=== PATIENT | female | born 1990 | race Caucasian/White ===

== ENCOUNTER 2016-09-28 12:29 | Emergency (ER) | payer SELFPAY ==
--- NOTE | 2016-09-28 12:37 | ER Document Report ---
ED Medical Screen (RME) - General Stated Complaint: LOWER ABDOMINAL PAIN Time seen by provider: 12:45 Mode of Arrival: Ambulatory Information source: Patient Notes: 25-year-old female complaining of sharp left pelvic pain during sex last night. Has persisted the pain, radiates to suprapubic. White vaginal discharge, no odor. No urinary sx. No hx of ovarian cyst. TRAVEL OUTSIDE OF THE [place] IN LAST 30 DAYS: No - Related Data Allergies/Adverse Reactions: morphine Allergy (Verified 06/21/16 11:07) Past Medical History Pulmonary Medical History: Denies: Hx Tuberculosis Renal/ Medical History: Denies: Hx End Stage Renal Disease, Hx Kidney Stones, Hx Peritoneal Dialysis Traumatic Medical History: Reports: Hx Fractures - FX JAW A CHILD Past Surgical History: Reports: Hx Tonsillectomy. Denies: Hx Appendectomy, Hx Bowel Surgery, Hx Section, Hx Cholecystectomy, Hx Coronary Artery Bypass Graft, Hx Gastric Bypass Surgery, Hx Herniorrhaphy, Hx Hysterectomy, Hx Mastectomy, Hx Pacemaker, Hx Tubal Ligation - Immunizations Hx Diphtheria, Pertussis, Tetanus Vaccination: Yes
[2016-09-28 13:26] LABS: APPEARANCE,URINE SLIGHTLY-CLOUDY; BILIRUBIN,URINE NEGATIVE (NEGATIVE); GLUCOSE, URINE NEGATIVE (NEGATIVE); KETONES,URINE NEGATIVE (NEGATIVE); LEUKOCYTE ESTERASE,URINE NEGATIVE (NEGATIVE); NITRITE,URINE NEGATIVE (NEGATIVE); PROTEIN,URINE NEGATIVE (NEGATIVE); URINE SPECIFIC GRAVITY 1.014; UROBILINOGEN,URINE NEGATIVE mg/dL (<2.0)
--- NOTE | 2016-09-28 14:27 | ER Document Report ---
ED General - General Chief Complaint: Abdominal Pain Stated Complaint: LOWER ABDOMINAL PAIN Time seen by provider: 13:10 Mode of Arrival: Ambulatory Information source: Patient Notes: 25-year-old female reports sudden onset of suprapubic and left lower quadrant abdominal pain during intercourse last night. Patient reports she's had trace clear vaginal discharge for the past 3 days but no vaginal bleeding. Last menstrual period she says finished 3 days ago and was normal for her. She denies fever, chills, nausea, vomiting, cough, shortness of breath, chest pain, upper abdominal pain, back pain, dysuria, urgency, frequency, or hematuria. No prior history of pain like this. Physical Exam: General: Alert, appears well. HEENT: Normocephalic. Atraumatic. PERRLA. Extraocular movements intact. Oropharynx clear. Neck: Supple. Non-tender. Respiratory: No respiratory distress. Clear and equal breath sounds bilaterally. Cardiovascular: Regular rate and rhythm. Abdominal: Normal Inspection. Soft, non-tender. No distension. Normal Bowel Sounds. exam normal external female anatomy. Trace white discharge no vaginal bleeding. No abrasions or evidence of trauma. Patient has minimal left adnexal tenderness mineral midline tenderness with normal-size uterus not tender on the right. No cervical motion tenderness. Back: Non-tender. No deformity or step off. Extremities: Moves all four extremities. Upper extremities: Normal inspection. Non-tender. Normal color. Normal ROM. Normal temperature. Lower extremities: Normal inspection. Non-tender. No edema. Normal color. Normal ROM. Normal temperature. Neurological: Speech clear mentation normal no lateralizing signs Psychological: Normal affect. Normal Mood. Skin: Warm. Dry. Normal color. TRAVEL OUTSIDE OF THE [place] IN LAST 30 DAYS: No - Related Data Allergies/Adverse Reactions: morphine Allergy (Verified 09/28/16 12:48) Past Medical History - General Information source: Patient - Social History Smoking Status: Current Every Day Smoker Chew tobacco use (# tins/day): No Frequency of alcohol use: None Drug Abuse: None Family History: Reviewed & Not Pertinent Patient has suicidal ideation: No Patient has homicidal ideation: No Pulmonary Medical History: Denies: Hx Tuberculosis Renal/ Medical History: Denies: Hx End Stage Renal Disease, Hx Kidney Stones, Hx Peritoneal Dialysis Traumatic Medical History: Reports: Hx Fractures - FX JAW A CHILD Past Surgical History: Reports: Hx Tonsillectomy. Denies: Hx Appendectomy, Hx Bowel Surgery, Hx Section, Hx Cholecystectomy, Hx Coronary Artery Bypass Graft, Hx Gastric Bypass Surgery, Hx Herniorrhaphy, Hx Hysterectomy, Hx Mastectomy, Hx Pacemaker, Hx Tubal Ligation - Immunizations Hx Diphtheria, Pertussis, Tetanus Vaccination: Yes Review of Systems - Review of Systems Constitutional: denies: Chills, Fever EENT: denies: Ear pain, Throat pain Cardiovascular: denies: Chest pain Respiratory: denies: Cough, Short of breath Gastrointestinal: See HPI Genitourinary: See HPI Female Genitourinary: See HPI Musculoskeletal: denies: Back pain Hematologic/Lymphatic: denies: Swollen glands Neurological/Psychological: denies: Weakness, Numbness Physical Exam - Vital signs Vitals: Temp Pulse Resp BP Pulse Ox 98.2 F 80 16 129/68 H 100 09/28/16 12:45 09/28/16 12:45 09/28/16 12:45 09/28/16 12:45 09/28/16 12:45 Course - Re-evaluation Re-evalutation: 09/28/16 15:27 Patient is able amylase without difficulty though she reports amylase and does sometimes make her hurt. She has no discomfort elsewhere in her abdomen to suggest serious intra-abdominal pathology. History and physical are most consistent with nonspecific pelvic pain such as round ligament pain. She will be given outpatient referral to [facility] for recheck and asked to return for fever vomiting worse pain or other problems - Vital Signs Vital signs: Temp Pulse Resp BP Pulse Ox 98.2 F 80 16 129/68 H 100 09/28/16 12:45 09/28/16 12:45 09/28/16 12:45 09/28/16 12:45 09/28/16 12:45 - Laboratory Laboratory results interpreted by me: Urinalysis negative urine test negative wet prep negative for trichomoniasis or yeast GC chlamydia negative - Diagnostic Test Radiology reviewed: Reports reviewed Discharge - Discharge Clinical Impression: Pelvic pain Condition: Stable Disposition: HOME, SELF-CARE Additional Instructions: Pelvic Pain There are many causes of pain in the pelvic area. The cause could be the tubes, ovaries, uterus, intestines, appendix, pelvic muscles and connective tissue, or the urinary tract. The cause of your pelvic pain is not clear. However, it seems safe to treat you outside the hospital. If the pain sounds like a temporary problem, we sometimes wait to see if it goes away. Other patients may need additional tests, such as pelvic ultrasound or cultures. Conditions may change. Call us or come back for reexamination if any problems occur, such as: (1) Pain that becomes more severe, steady, or becomes concentrated in one specific area. Also, pain that is more severe with movement or coughing. (2) Vomiting that persists or becomes more frequent. (3) Blood in the vomitus, urine, or bowel movements. Blood in the stool may have a tarry or black appearance. (4) Shaking chills or fever greater than 100 degrees. (5) The abdomen becomes more distended or swollen. (6) Bowel movements cease. (7) Heavy vaginal bleeding. Referrals: JACQUES PLUNKETT MD [ACTIVE STAFF] - Follow up in 1 week
[2016-09-28 14:59] LABS: CHLAM PCR NOT DETECTED (NOT DETECT)
[2016-09-28 15:57] VITALS: BP 118/69
== END 2016-09-28 15:45 | disposition home or self-care (01) ==
LOC: ER 12:29
DX: R10.2 Pelvic and perineal pain (principal); R10.30 Lower abdominal pain, unspecified; R10.32 Left lower quadrant pain; N89.8 Other specified noninflammatory disorders of vagina; F17.210 Nicotine dependence, cigarettes, uncomplicated
CPT/HCPCS: 76830; 81001; 81025; 87086; 87210; 87491; 87591; 93976; 99284

== ENCOUNTER 2017-07-19 15:13 | Emergency (ER) | payer SELFPAY ==
--- NOTE | 2017-07-19 16:06 | ER Document Report ---
ED Medical Screen (RME) - General Chief Complaint: Abdominal Pain Stated Complaint: ABDOMINAL PAIN Time Seen by Provider: 07/19/17 16:05 Mode of Arrival: Ambulatory Information source: Patient Notes: Patient states she is concerned she may have an STD. TRAVEL OUTSIDE OF THE [place] IN LAST 30 DAYS: No - Related Data Allergies/Adverse Reactions: morphine Allergy (Verified 07/19/17 15:31) Past Medical History Pulmonary Medical History: Denies: Hx Tuberculosis Renal/ Medical History: Denies: Hx End Stage Renal Disease, Hx Kidney Stones, Hx Peritoneal Dialysis Traumatic Medical History: Reports: Hx Fractures - FX JAW A CHILD Past Surgical History: Reports: Hx Tonsillectomy. Denies: Hx Appendectomy, Hx Bowel Surgery, Hx Section, Hx Cholecystectomy, Hx Coronary Artery Bypass Graft, Hx Gastric Bypass Surgery, Hx Herniorrhaphy, Hx Hysterectomy, Hx Mastectomy, Hx Pacemaker, Hx Tubal Ligation - Immunizations Hx Diphtheria, Pertussis, Tetanus Vaccination: Yes Physical Exam - Vital signs Vitals: Temp Pulse Resp BP Pulse Ox 98.7 F 77 18 128/74 H 98 07/19/17 15:30 07/19/17 15:30 07/19/17 15:30 07/19/17 15:30 07/19/17 15:30 Course - Vital Signs Vital signs: Temp Pulse Resp BP Pulse Ox 98.7 F 77 18 128/74 H 98 07/19/17 15:30 07/19/17 15:30 07/19/17 15:30 07/19/17 15:30 07/19/17 15:30
--- NOTE | 2017-07-19 16:25 | ER Document Report ---
ED GI/ - General Chief Complaint: Abdominal Pain Stated Complaint: ABDOMINAL PAIN Time Seen by Provider: 07/19/17 16:05 Mode of Arrival: Ambulatory Notes: Patient is a 26-year-old female who comes emergency department for chief complaint of lower abdominal cramping and discomfort for the past couple of days. She states that about 1.5 weeks ago she had unprotected intercourse with a random individual, she also has since had intercourse with her ex, she states that her ex has a discharge going on right now. She is concerned she has an STD. She denies fever, rash, vomiting, current symptoms. She takes no daily medications. Only past medical history reported is tonsillectomy. TRAVEL OUTSIDE OF THE [place] IN LAST 30 DAYS: No - Related Data Allergies/Adverse Reactions: morphine Allergy (Verified 07/19/17 15:31) Past Medical History - General Information source: Patient - Social History Smoking Status: Never Smoker Drug Abuse: None Lives with: Family Family History: Reviewed & Not Pertinent Patient has suicidal ideation: No Patient has homicidal ideation: No Pulmonary Medical History: Denies: Hx Tuberculosis Renal/ Medical History: Denies: Hx End Stage Renal Disease, Hx Kidney Stones, Hx Peritoneal Dialysis Traumatic Medical History: Reports: Hx Fractures - FX JAW A CHILD Past Surgical History: Reports: Hx Tonsillectomy. Denies: Hx Appendectomy, Hx Bowel Surgery, Hx Section, Hx Cholecystectomy, Hx Coronary Artery Bypass Graft, Hx Gastric Bypass Surgery, Hx Herniorrhaphy, Hx Hysterectomy, Hx Mastectomy, Hx Pacemaker, Hx Tubal Ligation - Immunizations Hx Diphtheria, Pertussis, Tetanus Vaccination: Yes Review of Systems - Review of Systems Constitutional: No symptoms reported EENT: No symptoms reported Cardiovascular: No symptoms reported Respiratory: No symptoms reported Gastrointestinal: See HPI Genitourinary: See HPI Female Genitourinary: See HPI Musculoskeletal: No symptoms reported Skin: No symptoms reported Hematologic/Lymphatic: No symptoms reported Neurological/Psychological: No symptoms reported Physical Exam - Vital signs Vitals: Temp Pulse Resp BP Pulse Ox 98.7 F 77 18 128/74 H 98 07/19/17 15:30 07/19/17 15:30 07/19/17 15:30 07/19/17 15:30 07/19/17 15:30 Interpretation: Normal - General General appearance: Appears well, Alert - HEENT Head: Normocephalic, Atraumatic Eyes: Normal Pupils: PERRL - Respiratory Respiratory status: No respiratory distress Chest status: Nontender Breath sounds: Normal Chest palpation: Normal - Cardiovascular Rhythm: Regular Heart sounds: Normal auscultation Murmur: No - Abdominal Inspection: Normal Distension: No distension Bowel sounds: Normal Tenderness: Tender - There is mild suprapubic tenderness noted on examination, otherwise soft and benign abdomen, no guarding, rigidity, or rebound tenderness. No: McBurney's point, Garcia's sign, Guarding Organomegaly: No organomegaly - Genitourinary External exam: Normal Speculum exam: Cervix closed, Vaginal discharge - Small amount of whitish vaginal discharge noted Vaginal bleeding: None Bimanuel exam: No: Cervical motion tender Notes: PCT Ara present during examination - Back Back: Normal, Nontender. No: Tender, CVA tenderness, Vertebra tenderness - Extremities General upper extremity: Normal inspection, Nontender, Normal color, Normal ROM , Normal temperature General lower extremity: Normal inspection, Nontender, Normal color, Normal ROM , Normal temperature, Normal weight bearing. No: Allan's sign - Neurological Neuro grossly intact: Yes Cognition: Normal Orientation: AAOx4 Starr Coma Scale Eye Opening: Spontaneous [place] Coma Scale Verbal: Oriented [place] Coma Scale Motor: Obeys Commands [place] Coma Scale Total: 15 Speech: Normal Motor strength normal: LUE, RUE, LLE, RLE Sensory: Normal - Psychological Associated symptoms: Normal affect, Normal mood - Skin Skin Temperature: Warm Skin Moisture: Dry Skin Color: Normal Course - Re-evaluation Re-evalutation: Patient with unremarkable abdominal exam with no tenderness. No cervical motion tenderness. Scant discharge. Unremarkable physical exam otherwise. Unremarkable vital signs. Urinalysis indicating urinary tract infection with moderate leukocyte esterase and white blood cells. HCG is negative. Wet mount was not ideal but does show bacteria consistent with bacterial vaginosis. Gonorrhea and chlamydia pending. Discussed with patient. Patient will be treated for urinary tract infection, bacterial vaginosis, and she will be covered for pelvic infection including covering for gonorrhea and chlamydia. Patient states her significant other/ex has already been treated. Discussed follow-up recommendations and return precautions. Patient states understanding and agreement. - Vital Signs Vital signs: Temp Pulse Resp BP Pulse Ox 98.7 F 77 18 128/74 H 98 07/19/17 15:30 07/19/17 15:30 07/19/17 15:30 07/19/17 15:30 07/19/17 15:30 - Laboratory Laboratory results interpreted by me: 07/19/17 16:05 Urine Urobilinogen 2.0 H Ur Leukocyte Esterase MODERATE H Discharge - Discharge Clinical Impression: Pelvic pain Condition: Stable Disposition: HOME, SELF-CARE Additional Instructions: Your evaluation indicates both the urinary tract infection and bacterial vaginosis. You have been covered for a pelvic infection in addition to the prescriptions for the urinary tract infection and bacterial vaginosis. Follow- up with primary care. Return to the emergency department for any concerning symptoms including fever, vomiting, worsening pain, or any other concerning symptoms. Prescriptions: Cephalexin Monohydrate [Keflex 500 mg Capsule] 500 mg PO BID 5 Days #10 capsule Metronidazole [Flagyl 500 mg Tablet] 500 mg PO BID #14 tablet
[2017-07-19 16:39] LABS: APPEARANCE,URINE SLIGHTLY-CLOUDY; BILIRUBIN,URINE NEGATIVE (NEGATIVE); GLUCOSE, URINE NEGATIVE (NEGATIVE); KETONES,URINE NEGATIVE (NEGATIVE); LEUKOCYTE ESTERASE,URINE MODERATE (NEGATIVE); NITRITE,URINE NEGATIVE (NEGATIVE); PROTEIN,URINE NEGATIVE (NEGATIVE); URINE SPECIFIC GRAVITY 1.023
[2017-07-19] MEDS ORDERED: CEFTRIAXONE INJ 250 MG VIAL IM ONE (17:32)
[2017-07-19] MEDS ORDERED: AZITHROMYCIN 250 MG TABLET PO ONE (17:32)
[2017-07-19] MEDS ORDERED: LIDOCAINE 1% INJ-PF (10 MG/ML) 30 ML SDV INFIL ONE (17:32)
[2017-07-19 17:57] VITALS: BP 112/69
[2017-07-19 18:29] LABS: CHLAM PCR NOT DETECTED (NOT DETECT)
== END 2017-07-19 17:56 | disposition home or self-care (01) ==
LOC: ER 15:13
DX: N39.0 Urinary tract infection, site not specified (principal); N76.0 Acute vaginitis; B96.89 Other specified bacterial agents as the cause of diseases classified elsewhere; R10.2 Pelvic and perineal pain; Z20.2 Contact with and (suspected) exposure to infections with a predominantly sexual mode of transmission; Z88.5 Allergy status to narcotic agent
CPT/HCPCS: 99284; 96372; 87210; 81025; 81001; 87491; 87591; J3490; J0696

== ENCOUNTER 2017-08-31 08:19 | Emergency (ER) | payer SELFPAY ==
--- NOTE | 2017-08-31 09:32 | ER Document Report ---
ED GI/ - General Chief Complaint: Vaginal Discharge Stated Complaint: VAGINAL PAIN Time Seen by Provider: 08/31/17 09:23 Mode of Arrival: Ambulatory TRAVEL OUTSIDE OF THE [place] IN LAST 30 DAYS: No - HPI Notes: 08/31/17 09:30 26-year-old female presents with 2 days of dysuria sensation she is not emptying her bladder well as well as some stringy vaginal discharge. It is not significantly malodorous. It is not normal though for her. She states she found out that her had been cheating on her and is concerned she could have an STD. She has some mild pelvic pain. No back or flank discomfort. Denies fever. No nausea or vomiting. She has no other complaints or pain. She is unsure if she is . - Related Data Allergies/Adverse Reactions: morphine Allergy (Verified 08/31/17 08:20) Past Medical History - Social History Smoking Status: Current Every Day Smoker Family History: Reviewed & Not Pertinent Pulmonary Medical History: Denies: Hx Tuberculosis Renal/ Medical History: Denies: Hx End Stage Renal Disease, Hx Kidney Stones, Hx Peritoneal Dialysis Traumatic Medical History: Reports: Hx Fractures - FX JAW A CHILD Past Surgical History: Reports: Hx Tonsillectomy. Denies: Hx Appendectomy, Hx Bowel Surgery, Hx Section, Hx Cholecystectomy, Hx Coronary Artery Bypass Graft, Hx Gastric Bypass Surgery, Hx Herniorrhaphy, Hx Hysterectomy, Hx Mastectomy, Hx Pacemaker, Hx Tubal Ligation - Immunizations Hx Diphtheria, Pertussis, Tetanus Vaccination: Yes Review of Systems - Review of Systems -: Yes All other systems reviewed and negative Physical Exam - Vital signs Vitals: Temp Pulse Resp BP Pulse Ox 98.1 F 93 14 118/70 98 08/31/17 08:25 08/31/17 08:25 08/31/17 08:25 08/31/17 08:25 08/31/17 08:25 Interpretation: Normal - Notes Notes: GENERAL: VS as per nursing doc. Well-appearing, well-nourished and in no acute distress. HEAD: Atraumatic, normocephalic. EYES: Sclera anicteric, no conjunctival injection or discharge. ENT: Moist mucous membranes. NECK: Supple without lymphadenopathy. LUNGS: Breath sounds clear to auscultation bilaterally and equal. No wheezes rales or rhonchi. HEART: Regular rate and rhythm without murmurs. ABDOMEN: Soft, non-tender BACK: No CVA tenderness. EXTREMITIES: No edema. NEUROLOGICAL: Normal speech. Normal sensory and motor exams. No gross cerebellar abnormalities. PSYCH: Normal mood, normal affect. SKIN: Warm, dry/ : Pending - Genitourinary External exam: Normal. No: Lesions Speculum exam: Cervix closed, Vaginal discharge. No: Lesions, Vaginal lacerations - Mild slightly brownish discharge noted Vaginal bleeding: None Bimanuel exam: Other - Minimal generalized pelvic tenderness, nonlocalizing and no specific adnexal tenderness or masses noted. Somewhat limited by habitus. Course - Re-evaluation Re-evalutation: 08/31/17 10:14 Patient did not want to wait and wanted prophylaxis for STDs. Wet prep is pending at this point. We will ensure she is not and then we will provide her with STD prophylaxis with Rocephin and Zithromax. Urine is pending at this point. 08/31/17 10:38 Discussed findings with the patient. Urine has a significant amount of WBCs. We will place the patient on Macrobid while we await GC/Chlamydia PCR. HCG was negative. She understands follow-up needs. - Vital Signs Vital signs: Temp Pulse Resp BP Pulse Ox 98.1 F 93 14 118/70 98 08/31/17 08:25 08/31/17 08:25 08/31/17 08:25 08/31/17 08:25 08/31/17 08:25 - Laboratory Laboratory results interpreted by me: 08/31/17 09:55 Urine Protein 30 H Urine Urobilinogen 4.0 H Ur Leukocyte Esterase SMALL H Discharge - Discharge Clinical Impression: UTI (urinary tract infection), Vaginal discharge Condition: Good Disposition: HOME, SELF-CARE Additional Instructions: Return for any problems or concerns. Follow-up on the swabs that are pending at this point. If they are positive, any sexual partners will need to be treated. Prescriptions: Nitrofurantoin/Nitrofuran Mac [Macrobid 100 mg Capsule] 1 tab PO BID #14 capsule Phenazopyridine HCl [Pyridium 200 mg Tablet] 200 mg PO TID PRN #6 tablet PRN Reason: Urinary Symptoms Forms: Smoking Cessation Education
[2017-08-31 10:14] LABS: APPEARANCE,URINE CLOUDY; BILIRUBIN,URINE NEGATIVE (NEGATIVE); CALCIUM OXALATE CRYSTALS,URINE TOO NUMEROUS TO CNT /HPF; GLUCOSE, URINE NEGATIVE (NEGATIVE); KETONES,URINE NEGATIVE (NEGATIVE); LEUKOCYTE ESTERASE,URINE SMALL (NEGATIVE); NITRITE,URINE NEGATIVE (NEGATIVE); PROTEIN,URINE 30 mg/dL (NEGATIVE); URINE SPECIFIC GRAVITY 1.028
[2017-08-31] MEDS ORDERED: AZITHROMYCIN 250 MG TABLET PO ONE (10:14)
[2017-08-31] MEDS ORDERED: ONDANSETRON 4 MG TAB.RAPDIS PO ONE (10:14)
[2017-08-31] MEDS ORDERED: CEFTRIAXONE INJ 250 MG VIAL IM ONE (10:15)
[2017-08-31] MEDS ORDERED: LIDOCAINE 1% INJ-PF (10 MG/ML) 30 ML SDV ONE (11:25)
[2017-08-31 11:47] VITALS: BP 124/80
== END 2017-08-31 11:48 | disposition home or self-care (01) ==
LOC: ER 08:19
DX: N89.8 Other specified noninflammatory disorders of vagina (principal); N39.0 Urinary tract infection, site not specified; Z20.2 Contact with and (suspected) exposure to infections with a predominantly sexual mode of transmission; R10.2 Pelvic and perineal pain; F17.200 Nicotine dependence, unspecified, uncomplicated; Z88.5 Allergy status to narcotic agent
CPT/HCPCS: 99283; 96372; 87210; 81025; 81001; 87491; 87591; S0119; J3490; J0696

== ENCOUNTER 2017-10-10 13:27 | Emergency (ER) | payer SELFPAY ==
[2017-10-10] MEDS ORDERED: PREDNISONE 20 MG TABLET PO ONE (14:31)
[2017-10-10] MEDS ORDERED: DIPHENHYDRAMINE HCL 25 MG CAPSULE PO ONE (14:31)
--- NOTE | 2017-10-10 14:36 | ER Document Report ---
ED Allergic Reaction - General Chief Complaint: Allergic Reaction Stated Complaint: POSSIBLE ALLERGIC REACTION Time Seen by Provider: 10/10/17 14:09 Mode of Arrival: Ambulatory Information source: Patient TRAVEL OUTSIDE OF THE [place] IN LAST 30 DAYS: No - HPI Onset: Just prior to arrival Onset/Duration: Sudden Notes: Patient arrives with complaints of possible allergic reaction. The patient states that she is taking metronidazole for both Trichomonas and Bactrim vaginosis which was prescribed by the health department. She states that she also thought she was starting to get a cold. She took a dose of liquid guaifenesin and 10 minutes later took her dose of metronidazole and soon after developed redness to her skin with itching and lip swelling. She denies any difficulty breathing or swallowing. She did not take any medications. States that the lip swelling has resolved but her skin continues to be red and itchy. She denies any abdominal pain, nausea, vomiting, diarrhea. She denies any prior allergic reactions to these medications. She denies any blurred loss vision. No chest pain or shortness of breath. She denies any other complaints at this time. - Related Data Allergies/Adverse Reactions: morphine Allergy (Verified 10/10/17 13:28) Past Medical History - Social History Smoking Status: Unknown if Ever Smoked Family History: Reviewed & Not Pertinent Pulmonary Medical History: Denies: Hx Tuberculosis Renal/ Medical History: Denies: Hx End Stage Renal Disease, Hx Kidney Stones, Hx Peritoneal Dialysis Traumatic Medical History: Reports: Hx Fractures - FX JAW A CHILD Past Surgical History: Reports: Hx Tonsillectomy. Denies: Hx Appendectomy, Hx Bowel Surgery, Hx Section, Hx Cholecystectomy, Hx Coronary Artery Bypass Graft, Hx Gastric Bypass Surgery, Hx Herniorrhaphy, Hx Hysterectomy, Hx Mastectomy, Hx Pacemaker, Hx Tubal Ligation - Immunizations Hx Diphtheria, Pertussis, Tetanus Vaccination: Yes Review of Systems - Review of Systems -: Yes All other systems reviewed and negative Physical Exam - Vital signs Vitals: Temp Pulse Resp BP Pulse Ox 98.5 F 116 H 18 102/71 98 10/10/17 13:33 10/10/17 13:33 10/10/17 13:33 10/10/17 13:33 10/10/17 13:33 - Notes Notes: GENERAL: alert, cooperative, nontoxic, no distress. HEAD: normocephalic, atraumatic EYES: conjunctiva pink without discharge, no external redness or swelling. EARS: no external swelling, no external redness NOSE: atraumatic, no external swelling MOUTH/THROAT: mucous membranes moist and pink, posterior pharynx without erythema, swelling, exudate. No trismus or drooling. No lip or tongue swelling. No drooling. No stridor. NECK: soft, supple, full range of motion, no meningismus. CHEST: no distress, lungs clear and equal throughout. No wheezing, rales, rhonchi. CARDIAC: regular rate and rhythm, no murmur, normal capillary refill, normal pulses. No peripheral edema noted. ABDOMEN: Soft, nontender. BACK: full range of motion, no CVA tenderness. EXTREMITIES: full range of motion of all extremities. No redness, no swelling. NEURO: alert and oriented x 3, no focal deficits, full range of motion of all extremities. PYSCH: appropriate mood, affect. Patient is cooperative. SKIN: pink, warm, dry, generalized redness to the skin. No peeling of skin. No petechiae or vesicular lesions.. Course - Re-evaluation Re-evalutation: 10/10/17 15:13 Patient is nontoxic appearing with stable vitals. The patient was told she had trichomonas and bacterial vaginosis and was placed on metronidazole. She took a dose of metronidazole as well as a dose of liquid guaifenesin and then soon after developed red itching to the skin with lip swelling. This has since resolved. She was given a dose of prednisone and Benadryl here in the emergency department states that she feels significantly better with no more itching. On exam she has no rash and has no lip swelling and no airway compromise. It is difficult to know if this was the guaifenesin or the metronidazole that caused the allergic reaction. Patient performed wet prep here in the emergency department that was negative for trichomoniasis, still positive for bacterial vaginosis as well as yeast. Will place the patient on clindamycin for the actual vaginosis as well as Diflucan for the yeast. She was instructed to follow back up at the health department in 1-2 weeks for a recheck to ensure all of her infections have been cleared up. I will also send her home on 5 days of prednisone and instructions to take [id number] Benadryl for the allergic reaction. She is instructed to follow-up sooner if she develops any worsening symptoms, lip swelling, tongue swelling, difficulty breathing or swallowing, or any further concerns. The patient's emergency department workup and current diagnosis were explained to the patient and or family. Follow-up instructions were provided. Medications if prescribed were discussed. Instructions for when to return to the emergency department including specific worrisome symptoms were discussed with the patient and/or family. - Vital Signs Vital signs: Temp Pulse Resp BP Pulse Ox 98.5 F 116 H 18 102/71 98 10/10/17 13:33 10/10/17 13:33 10/10/17 13:33 10/10/17 13:33 10/10/17 13:33 Discharge - Discharge Clinical Impression: Bacterial vaginal infection, Yeast infection Allergic reaction caused by a drug Qualifiers: Encounter type: initial encounter Qualified Code(s): T78.40XA - Allergy, unspecified, initial encounter Condition: Stable Disposition: HOME, SELF-CARE Instructions: Acute Allergic Reaction to Drugs ([facility]), Vaginosis, Bacterial ([facility] ), Vaginal Yeast Infection ([facility]) Additional Instructions: Take medications as prescribed. Do not take any further metronidazole or guaifenesin. Drink plenty of fluids. Take [id number] Benadryl every 6 hours for your allergic reaction. Follow-up with your doctor or the health department in approximately 2 weeks for recheck to be sure you have cleared your bacterial vaginosis and yeast infection. Follow-up sooner for worsening rash, lip or tongue swelling, difficulty breathing or swallowing, or any further concerns. Prescriptions: Clindamycin HCl 300 mg PO BID #14 capsule Fluconazole [Diflucan 100 Mg Tablet] 100 mg PO ONCE #1 tablet Prednisone [Deltasone 20 mg Tablet] 3 tab PO DAILY 5 Days tablet Forms: Smoking Cessation Education Referrals: [facility] [Provider Group] - Follow up as needed
[2017-10-10 14:55] LABS: BACTERIA (WET MOUNT) 4+ BACTERIA SEEN; EPITHELIALS (WET MOUNT) 4+ EPITHELIALS SEEN; T.VAGINALIS (WET MOUNT) NO TRICHOMONAS SEEN; WBCS (WET MOUNT) 2+ WBCS SEEN; YEAST (WET MOUNT) YEAST SEEN
[2017-10-10 15:35] VITALS: BP 106/61
== END 2017-10-10 15:32 | disposition home or self-care (01) ==
LOC: ER 13:27
DX: L27.0 Generalized skin eruption due to drugs and medicaments taken internally (principal); T50.905A Adverse effect of unspecified drugs, medicaments and biological substances, initial encounter; N76.0 Acute vaginitis; B96.89 Other specified bacterial agents as the cause of diseases classified elsewhere; B37.3 Candidiasis of vulva and vagina
CPT/HCPCS: 99283; 87210; J7512

== ENCOUNTER 2017-10-28 20:06 | Emergency (ER) | payer SELFPAY ==
[2017-10-28] MEDS ORDERED: DIPHENHYDRAMINE HCL 50 MG CAPSULE PO ONE (20:15)
[2017-10-28] MEDS ORDERED: PREDNISONE 20 MG TABLET PO ONE (20:15)
[2017-10-28] MEDS ORDERED: FAMOTIDINE 20 MG TABLET PO ONE (20:15)
[2017-10-28] MEDS ORDERED: DIPHENHYDRAMINE HCL 25 MG CAPSULE ONE (20:18)
[2017-10-28] MEDS ORDERED: METHYLPREDNISOLONE INJ 125 MG/2 ML SDV IM ONE (20:18)
[2017-10-28] MEDS ORDERED: METHYLPREDNISOLONE INJ 125 MG/2 ML SDV ONE (20:19)
--- NOTE | 2017-10-28 20:19 | ER Document Report ---
ED Medical Screen (RME) - General Chief Complaint: Allergic Reaction Stated Complaint: DIFFICULTY BREATHING Time Seen by Provider: 10/28/17 20:15 Mode of Arrival: Wheelchair Information source: Patient Notes: 23-nm[age]-v[age]-year-old female presents to ED for complaint of possible allergic reaction with difficulty breathing. Respirations are regular and let unlabored and able to speak to me in full sentences. She states she is having body burning all over. She states she does not know what she is allergic to it started at about 1945 tonight. There are hives to face neck arms legs chest and back at this time. We will treat her with Pepcid Benadryl and Solu-Medrol and monitor her. TRAVEL OUTSIDE OF THE [place] IN LAST 30 DAYS: No - HPI Onset: Just prior to arrival Onset/Duration: Gradual Quality of pain: Burning Severity: Moderate Pain Level: 3 Associated Symptoms: Shortness of breath, Other - Body burning Exacerbated by: Denies Relieved by: Denies Similar symptoms previously: Yes Recently seen / treated by doctor: No - Related Data Smoking: Cigarettes Frequency of alcohol use: Occasional Drug Abuse: None Allergies/Adverse Reactions: morphine Allergy (Verified 10/10/17 13:28) Past Medical History - General Information source: Patient - Social History Cigarette use (# per day): Yes Frequency of alcohol use: Occasional Drug Abuse: None Lives with: Grandparent(s) Family history: Reviewed & Not Pertinent - Past Medical History Cardiac Medical History: Reports: None Pulmonary Medical History: Reports: None EENT Medical History: Reports: None Neurological Medical History: Reports: None Endocrine Medical History: Reports: None Renal/ Medical History: Reports: None Malignancy Medical History: Reports: None GI Medical History: Reports: None Musculoskeltal Medical History: Reports None Skin Medical History: Reports None Psychiatric Medical History: Reports: None Traumatic Medical History: Reports: Hx Fractures - FX JAW A CHILD Infectious Medical History: Reports: None Past Surgical History: Reports: Hx Tonsillectomy - Immunizations Immunizations up to date: Yes Hx Diphtheria, Pertussis, Tetanus Vaccination: Yes Review of Systems - Review of Systems Constitutional: No symptoms reported EENT: No symptoms reported Cardiovascular: No symptoms reported Respiratory: No symptoms reported Gastrointestinal: No symptoms reported Genitourinary: No symptoms reported Female Genitourinary: No symptoms reported Musculoskeletal: No symptoms reported Skin: No symptoms reported, Other - Hives to face arms legs chest abdomen and back Hematologic/Lymphatic: No symptoms reported Neurological/Psychological: No symptoms reported -: Yes All other systems reviewed and negative Physical Exam - Vital signs Vitals: Pulse Resp BP Pulse Ox 100 18 121/78 99 10/28/17 20:15 10/28/17 20:15 10/28/17 20:15 10/28/17 20:15 Interpretation: Normal - General General appearance: Appears well, Alert - HEENT Head: Normocephalic, Atraumatic Eyes: Normal Pupils: PERRL - Respiratory Respiratory status: No respiratory distress Chest status: Nontender Breath sounds: Normal Chest palpation: Normal - Cardiovascular Rhythm: Regular Heart sounds: Normal auscultation Murmur: No - Abdominal Inspection: Normal Distension: No distension Bowel sounds: Normal Tenderness: Nontender Organomegaly: No organomegaly - Back Back: Normal, Nontender - Extremities General upper extremity: Normal inspection, Nontender, Normal color, Normal ROM , Normal temperature General lower extremity: Normal inspection, Nontender, Normal color, Normal ROM , Normal temperature, Normal weight bearing. No: Allan's sign - Neurological Neuro grossly intact: Yes Cognition: Normal Orientation: AAOx4 [place] Coma Scale Eye Opening: Spontaneous [place] Coma Scale Verbal: Oriented [place] Coma Scale Motor: Obeys Commands [place] Coma Scale Total: 15 Speech: Normal Motor strength normal: LUE, RUE, LLE, RLE Sensory: Normal - Psychological Associated symptoms: Normal affect, Normal mood - Skin Skin Temperature: Warm Skin Moisture: Dry Skin Color: Normal Location of irregularity: Generalized Character of irregularity: Urticarial Irregularity with: Tenderness Course - Re-evaluation Re-evalutation: 10/28/17 21:20 Patient was treated with Pepcid Benadryl and Solu-Medrol. She continued to have some increase in hives. Epinephrine 0.3 mg given IM. We will continue to monitor. 10/29/17 04:39 patient was discharged AGAINST MEDICAL ADVICE around 1030. I have asked her to stay at least another hour after given epinephrine but she stated she needed to go home with her children and she needed to go home right then I explained to her all the risk of epinephrine and going home on monitored. Patient stated she needed to go home anyway and she left after signing her papers. Patient was alert oriented totally able to make a rational decision. She did have a family member to drive her home. She stated that she would return to the emergency room promptly if she had any return of symptoms of any shortness of breath or any heart palpitations. Patient was discharged home with a prescription for prednisone and an EpiPen. Patient instructed to please follow-up with her primary doctor and get allergy testing as soon as possible. - Vital Signs Vital signs: Temp Pulse Resp BP Pulse Ox 98.5 F 111 H 18 145/84 H 99 10/28/17 22:12 10/28/17 22:12 10/28/17 22:12 10/28/17 22:12 10/28/17 22:12 Doctor's Discharge - Discharge Clinical Impression: Allergic reaction Qualifiers: Encounter type: initial encounter Qualified Code(s): T78.40XA - Allergy, unspecified, initial encounter Condition: Stable Disposition: AGAINST MEDICAL ADVICE Instructions: Family Physicians / Practices Additional Instructions: ACUTE ALLERGIC REACTION: Your symptoms are due to an allergic reaction. Allergy can cause hives, swelling of the hands, feet, and face, hoarseness, and difficulty swallowing or breathing. It may be due to exposure to medication, animal dander, foods, infection, or insect bites. Medication is a common cause, even when prior use of this same medication caused no problems. Acute treatment may include adrenalin and antihistamines. Usually, the specific allergic agent can't be identified unless repeated episodes occur. Home treatment includes the following: (1) Stop any suspicious medications. This will be discussed with you. (2) Oral antihistamines for the next four to five days. Example, diphenhydramine (Benadryl) every four hours. (3) You may also use cimetidine (Tagamet), ranitidine (Zantac), or famotidine ( Pepcid) every four hours if diphenhydramine is not controlling itching and hives. (4) Avoid aspirin until the hives completely disappear. (5) Avoid hot baths or showers until the hives are completely gone. Call the doctor if faintness, difficulty swallowing, tightness in the chest , or wheezing occurs. EPINEPHRINE: An injection of epinephrine (also called adrenalin) is used to treat allergic reactions, asthma, and some other medical conditions. It is a stimulant medication that consticts blood vessels, relaxes smooth muscles such as in the bronchioles of the lung, elevates blood pressure, and increases heart rate. It can temporarily make you feel very nervous and shakey, but it's affects last only a short time, about 15 to 30 minutes at most. STEROID MEDICATION INJECTION: You have been given an injection of medicine of the cortisone/steroid class. This medication is used to control inflammation or allergy. It is often continued as a pill for a short period of time, until the acute process subsides. There are usually no side effects from short-term use of cortisone-like medications. Some persons feel an increased sense of well-being and are not sleepy at bedtime. Long-term use of cortisone medications is best avoided, unless required for a severe condition. If your condition does not remit, or relapses after the course of corticosteroid medication, you should consult your physician. STEROID MEDICATION: You have been given a medicine of the cortisone/steroid class. This medication is used to control inflammation or allergy. It is usually only given for a short period of time, until the acute process subsides. There are usually no side effects from short-term use of cortisone-like medications. Some persons feel an increased sense of well-being and are not sleepy at bedtime. Long-term use of cortisone medications is best avoided, unless required for a severe condition. If your condition does not remit, or relapses after the course of corticosteroid medication, you should consult your physician. ACID-SUPPRESSING MEDICATION: You have a prescription for medicine which reduces the stomach's secretion of acid. Examples include Zantac, Tagament, and Pepcid. These drugs are often used to allow healing of ulcers or esophagitis. They may be needed to prevent recurrence of ulcers in some patients, or to prevent damage from acid reflux in the esophagus. Take all medication as prescribed, even after the pain is gone. Regular antacids may be added as needed if you have symptoms while taking this medicine. These medications sometimes are prescribed for allergic reactions because they have anti-histaminic effects and relieve the rash and itching of the reaction. There are usually no side effects from this medication. But, in rare cases and particularly in the elderly, serious problems can occur. Contact your doctor if there is fever, rash, hallucinations, confusion, or unusual bruising. Contact your doctor at once if you develop lightheadedness, black or bloody stool, or bloody vomitus. ANTIHISTAMINES: An antihistamine has been given and/or prescribed to control your symptoms. Antihistamines are used for many reasons, including itching, watering eyes, runny nose, allergic swelling, hives, and insect stings. Antihistamines may cause drowsiness, especially with the first dose. Do not operate machinery or drive while under the effects of the medication. Other common side effects include dry mouth and eyes. In older persons, antihistamines can occasionally cause urinary retention, constipation, and trouble focusing the eyes. Do not combine the medication with alcohol, or with any other medication without talking to your doctor. USE OF DIPHENHYDRAMINE: The use of diphenhydramine (Benadryl) has been recommended to control allergic symptoms. The 25 mg strength is available over- the-counter, as well as the elixir. This antihistamine is used for many symptoms. It's useful for itching, watering eyes and nose, allergic swelling, hives, and insect stings. The medication can be repeated four times daily. Age Elixir (12.5 mg/tsp) 25 mg pill 2-3 yr 1/2 tsp 4-8 yr 1 tsp 9-14 yr 2 tsp one tab adult 1-2 tabs Antihistamines may cause drowsiness, especially with the first dose. Do not operate machinery or drive while under the effects of the medication. Do not combine the medication with alcohol, or with any other medication without talking to your doctor. Been recommended to stay another hour after getting epinephrine prednisone and Benadryl and Pepcid for your allergic reaction. You have insisted that she needed to go home now to take your kids home. You are signing out AGAINST MEDICAL ADVICE. It is been explained to you that the Alondra can make her heart race and it is better to monitor you for at least another hour. You have been instructed that if you have any symptoms of racing heart or any symptoms that are out of the normal please return to the emergency room immediately. FOLLOW-UP CARE: If you have been referred to a physician for follow-up care, call the physician s office for an appointment as you were instructed or within the next two days. If you experience worsening or a significant change in your symptoms, notify the physician immediately or return to the Emergency Department at any time for re-evaluation. Prescriptions: Epinephrine [Epipen Jr 0.15 mg/0.3 mL AutoInject] 1 ea IM ASDIR PRN #1 autoinjector PRN Reason: Prednisone [Deltasone 20 mg Tablet] 3 tab PO DAILY 5 Days tablet Forms: Elevated Blood Pressure, Smoking Cessation Education
[2017-10-28] MEDS ORDERED: DIPHENHYDRAMINE HCL 50 MG/ML VIAL ONE (20:37)
[2017-10-28] MEDS ORDERED: EPINEPHRINE INJ/PF 1 MG/1 ML AMPULE IM ONE (21:06)
[2017-10-28 22:12] VITALS: BP 145/84
== END 2017-10-28 22:20 | disposition left against medical advice (07) ==
LOC: ER 20:06
DX: T78.40XA Allergy, unspecified, initial encounter (principal); L50.9 Urticaria, unspecified; R06.02 Shortness of breath; F17.210 Nicotine dependence, cigarettes, uncomplicated; X58.XXXA Exposure to other specified factors, initial encounter
CPT/HCPCS: 96372; 96374; 99284; J0171; J2930

== ENCOUNTER 2018-03-20 23:16 | Emergency (ER) | payer SELFPAY ==
[2018-03-20 23:21] VITALS: BP 133/88
--- NOTE | 2018-03-21 00:13 | ER Document Report ---
ED Skin Rash/Insect Bite/Abscs - General Mode of Arrival: Ambulatory Information source: Patient TRAVEL OUTSIDE OF THE [place] IN LAST 30 DAYS: No - General Chief Complaint: Abscess Stated Complaint: SKIN PROBLEM Time Seen by Provider: 03/21/18 00:09 Notes: 27-year-old female presenting today with complaints of a possible abscess to her lower abdomen. Patient states she has noticed this for the last few days and had some discharge from yesterday. Patient has no discharge from her today. (KEVIN HDZ) - Related Data Allergies/Adverse Reactions: morphine Allergy (Verified 10/10/17 13:28) Past Medical History - General Information source: Patient - Social History Smoking Status: Never Smoker Cigarette use (# per day): No Frequency of alcohol use: None Drug Abuse: None Lives with: Family Family History: Reviewed & Not Pertinent Pulmonary Medical History: Denies: Hx Tuberculosis Traumatic Medical History: Reports: Hx Fractures - FX JAW A CHILD Past Surgical History: Reports: Hx Tonsillectomy - Immunizations Immunizations up to date: Yes Hx Diphtheria, Pertussis, Tetanus Vaccination: Yes Review of Systems - Review of Systems Constitutional: No symptoms reported EENT: No symptoms reported Cardiovascular: No symptoms reported Respiratory: No symptoms reported Gastrointestinal: No symptoms reported Genitourinary: No symptoms reported Female Genitourinary: No symptoms reported Musculoskeletal: No symptoms reported Skin: See HPI, Rash Hematologic/Lymphatic: No symptoms reported Neurological/Psychological: No symptoms reported -: Yes All other systems reviewed and negative Physical Exam - Vital signs Vitals: Temp Pulse Resp BP Pulse Ox 98.7 F 82 18 133/88 H 97 03/20/18 23:20 03/20/18 23:20 03/20/18 23:20 03/20/18 23:20 03/20/18 23:20 - Notes Notes: Physical Exam: General: Alert, appears well. HEENT: Normocephalic. Atraumatic. PERRLA. Extraocular movements intact. Oropharynx clear. Neck: Supple. Respiratory: No respiratory distress. Abdominal: Normal Inspection. No distension. Extremities: Moves all four extremities. Neurological: Normal cognition. AAOx4. Normal speech. Psychological: Normal affect. Normal Mood. Skin: 3cm x 2cm open blister, no fluctuance or induration. Small amount of surrounding erythema. (KEVIN HDZ) Course - Re-evaluation Re-evalutation: 03/21/18 00:13 Patient has no clinical signs of an abscess there is no induration. She has curled edges around the wound looks like a blister that has eroded. Patient is morbidly obese and was wearing tight clothing. I discussed with her she needs to put a Band-Aid over it and keep bacitracin on wound until healed. Will also place on 5 days of antibiotics she does have mild erythema around the ulceration that could be concerning for developing cellulitis Discussed return precautions as well. 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 Condition: Stable Disposition: HOME, SELF-CARE Additional Instructions: Please return to the emergency department next 3-4 days if symptoms are worsening despite antibiotic therapy and keeping bacitracin on wound and covering with Band-Aid Prescriptions: Bacitracin 1 applic TP DAILY PRN #1 pkg PRN Reason: Sulfamethoxazole/Trimethoprim [Bactrim Ds Tablet] 1 each PO BID 7 Days #14 tablet Forms: Return to Work Referrals: [facility] [NO LOCAL MD] - Follow up as needed Scribe Attestation: 03/23/18 19:12 I personally performed the services described documentation, reviewed and edited the documentation which was dictated to describe my presence, and it accurately records my words and actions. (MELISAS BROWN) Scribe Documentation - Scribe Written by Tanja:: Tanja Mahan, 03/21/2018 0046 acting as scribe for :: Julio
== END 2018-03-21 00:30 | disposition home or self-care (01) ==
LOC: ER 23:16
DX: L98.491 Non-pressure chronic ulcer of skin of other sites limited to breakdown of skin (principal); R21 Rash and other nonspecific skin eruption; E66.01 Morbid (severe) obesity due to excess calories
CPT/HCPCS: 99282

== ENCOUNTER 2018-06-24 19:17 | Emergency (ER) | payer SELFPAY ==
--- NOTE | 2018-06-24 20:17 | ER Document Report ---
ED Medical Screen (RME) - General Chief Complaint: OB Problem (<20wks) Stated Complaint: ABDOMINAL PAIN Time Seen by Provider: 06/24/18 20:14 Notes: 27-year-old female patient , LMP 05/05/2018, no care. Right lower quadrant/pelvic pain times 3 days. It is a dull ache. There is no bleeding. I have greeted and performed a rapid initial assessment of this patient. A comprehensive ED assessment and evaluation of the patient, analysis of test results and completion of the medical decision making process will be conducted by additional ED providers. TRAVEL OUTSIDE OF THE [place] IN LAST 30 DAYS: No - Related Data Allergies/Adverse Reactions: morphine Allergy (Verified 10/10/17 13:28) Past Medical History - General Last Menstrual Period: 05/05/2018 - Social History Frequency of alcohol use: None Family history: Reviewed & Not Pertinent Pulmonary Medical History: Denies: Hx Tuberculosis Renal/ Medical History: Denies: Hx End Stage Renal Disease, Hx Kidney Stones, Hx Peritoneal Dialysis Traumatic Medical History: Reports: Hx Fractures - FX JAW A CHILD Past Surgical History: Reports: Hx Tonsillectomy. Denies: Hx Appendectomy, Hx Bowel Surgery, Hx Section, Hx Cholecystectomy, Hx Coronary Artery Bypass Graft, Hx Gastric Bypass Surgery, Hx Herniorrhaphy, Hx Hysterectomy, Hx Mastectomy, Hx Pacemaker, Hx Tubal Ligation - Immunizations Immunizations up to date: Yes Hx Diphtheria, Pertussis, Tetanus Vaccination: Yes Physical Exam - Vital signs Vitals: Temp Pulse Resp BP Pulse Ox 98.1 F 94 18 134/66 H 99 06/24/18 19:40 06/24/18 19:40 06/24/18 19:40 06/24/18 19:40 06/24/18 19:40 Course - Vital Signs Vital signs: Temp Pulse Resp BP Pulse Ox 98.1 F 94 18 134/66 H 99 06/24/18 19:40 06/24/18 19:40 06/24/18 19:40 06/24/18 19:40 06/24/18 19:40
[2018-06-24 20:43] LABS: ABSOLUTE BASOPHILS # (AUTO) 0.1 10^3/uL (0.0-0.2); ABSOLUTE EOSINOPHILS # (AUTO) 0.2 10^3/uL (0.0-0.6); ABSOLUTE LYMPHOCYTES (AUTO) 3.9 10^3/uL (0.5-4.7); ABSOLUTE NEUT (AUTO) 5.8 10^3/uL (1.7-8.2); BASOPHILS % (AUTO) 0.5 % (0-2); EOSINOPHILS % (AUTO) 2.1 % (0-6); HEMATOCRIT 41.5 % (36.0-47.0); LYMPHOCYTES % (AUTO) 35.6 % (13-45); MEAN CORPUSCULAR HEMOGLOBIN 27.4 pg (27.0-33.4); MEAN CORPUSCULAR HGB CONC 33.8 g/dL (32.0-36.0); MEAN CORPUSCULAR VOLUME 81 fl (80-97); MONOCYTES % (AUTO) 8.9 % (3-13); PLATELET COUNT 218 10^3/uL (150-450); RED BLOOD COUNT 5.13 10^6/uL (3.72-5.28); RED CELL DISTRIBUTION WIDTH 15.3 % (11.5-14.0); SEGMENTED NEUTROPHILS % (AUTO) 52.9 % (42-78); TOTAL CELLS COUNTED % (AUTO) 100 %; WHITE BLOOD COUNT 10.9 10^3/uL (4.0-10.5)
[2018-06-24 20:58] LABS: ALANINE AMINOTRANSFERASE 26 U/L (9-52); ALKALINE PHOSPHATASE 79 U/L (38-126); ANION GAP 10 (5-19); APPEARANCE,URINE CLOUDY; ASPARTATE AMINO TRANSFERASE 9 U/L (14-36); BILIRUBIN,DIRECT 0.5 mg/dL (0.0-0.4); BILIRUBIN,TOTAL 0.5 mg/dL (0.2-1.3); BILIRUBIN,URINE NEGATIVE (NEGATIVE); BLOOD UREA NITROGEN 9 mg/dL (7-20); CALCIUM 9.5 mg/dL (8.4-10.2); CALCIUM OXALATE CRYSTALS,URINE RARE /HPF; CARBON DIOXIDE 22 mmol/L (22-30); CHLORIDE 106 mmol/L (98-107); COLOR,URINE YELLOW; GLUCOSE 86 mg/dL (75-110); GLUCOSE, URINE NEGATIVE (NEGATIVE); KETONES,URINE NEGATIVE (NEGATIVE); LEUKOCYTE ESTERASE,URINE MODERATE (NEGATIVE); NITRITE,URINE NEGATIVE (NEGATIVE); PROTEIN,URINE NEGATIVE (NEGATIVE); URINE SPECIFIC GRAVITY 1.026
--- NOTE | 2018-06-24 22:00 | ER Document Report ---
ED General - General Chief Complaint: OB Problem (<20wks) Stated Complaint: ABDOMINAL PAIN Time Seen by Provider: 06/24/18 20:14 Notes: Patient is a 27-year-old female at 6 weeks by LMP who presents with right lower abdominal pain that has been ongoing for the past 3 days. She states that the pain is a sharp, stabbing, constant pain to the right adnexal region. She states moving worsens the pain. Nothing improves the pain. She denies a history of similar pain during her previous the past 3 days. She denies any vaginal bleeding, vaginal discharge, fever or constitutional symptoms. She has not established care for this . TRAVEL OUTSIDE OF THE [place] IN LAST 30 DAYS: No - Related Data Allergies/Adverse Reactions: morphine Allergy (Verified 10/10/17 13:28) Past Medical History - General Information source: Patient Last Menstrual Period: 05/05/2018 - Social History Smoking Status: Current Every Day Smoker Frequency of alcohol use: None Drug Abuse: None Family History: Reviewed & Not Pertinent Patient has suicidal ideation: No Patient has homicidal ideation: No Pulmonary Medical History: Denies: Hx Tuberculosis Renal/ Medical History: Denies: Hx End Stage Renal Disease, Hx Kidney Stones, Hx Peritoneal Dialysis Traumatic Medical History: Reports: Hx Fractures - FX JAW A CHILD Past Surgical History: Reports: Hx Tonsillectomy. Denies: Hx Appendectomy, Hx Bowel Surgery, Hx Section, Hx Cholecystectomy, Hx Coronary Artery Bypass Graft, Hx Gastric Bypass Surgery, Hx Herniorrhaphy, Hx Hysterectomy, Hx Mastectomy, Hx Pacemaker, Hx Tubal Ligation - Immunizations Immunizations up to date: Yes Hx Diphtheria, Pertussis, Tetanus Vaccination: Yes Review of Systems - Review of Systems Notes: Constitutional: Negative for fever. HENT: Negative for sore throat. Eyes: Negative for visual changes. Cardiovascular: Negative for chest pain. Respiratory: Negative for shortness of breath. Gastrointestinal: Positive for abdominal pain Genitourinary: Negative for dysuria. Musculoskeletal: Negative for back pain. Skin: Negative for rash. Neurological: Negative for headaches, weakness or numbness. 10 point ROS negative except as marked above and in HPI. Physical Exam - Vital signs Vitals: Temp Pulse Resp BP Pulse Ox 98.1 F 94 18 134/66 H 99 06/24/18 19:40 06/24/18 19:40 06/24/18 19:40 06/24/18 19:40 06/24/18 19:40 Interpretation: Normal Notes: PHYSICAL EXAMINATION: GENERAL: Well-appearing, well-nourished and in no acute distress. HEAD: Atraumatic, normocephalic. EYES: Pupils equal round and reactive to light, extraocular movements intact, sclera anicteric, conjunctiva are normal. ENT: nares patent, oropharynx clear without exudates. Moist mucous membranes. NECK: Normal range of motion, supple without lymphadenopathy LUNGS: Breath sounds clear to auscultation bilaterally and equal. No wheezes rales or rhonchi. HEART: Regular rate and rhythm without murmurs ABDOMEN: Soft, nontender, normoactive bowel sounds. No guarding, no rebound. No masses appreciated. EXTREMITIES: Normal range of motion, no pitting or edema. No cyanosis. NEUROLOGICAL: No focal neurological deficits. Moves all extremities spontaneously and on command. PSYCH: Normal mood, normal affect. SKIN: Warm, Dry, normal turgor, no rashes or lesions noted. Course - Re-evaluation Re-evalutation: 06/24/18 21:59 Presents with right adnexal discomfort for the past 3 days in the setting of an early first trimester . Concern for possible ectopic . The remainder of the abdominal exam is quite benign. HCG is well above the level of the where we should be able to see an intrauterine . Transvaginal ultrasound will be obtained to further clarify. Urinalysis is consistent with a urinary tract infection. Clinical history and exam are not consistent with an acute appendicitis, pain is located exclusively over the right adnexa, no pain to the right lower quadrant, no rebound or guarding. 06/24/18 23:22 Transvaginal ultrasound does visualize a single intrauterine . Repeat abdominal exam is benign with no further abdominal pain. Labs otherwise unremarkable. Patient's urinalysis has been sent for culture and she has been started on antibiotics for treatment. At this time will discharge with return precautions and follow-up recommendations. Verbal discharge instructions given a the bedside and opportunity for questions given. Medication warnings reviewed. Patient is in agreement with this plan and has verbalized understanding of return precautions and the need for primary care follow-up in the next 24-72 hours. - Vital Signs Vital signs: Temp Pulse Resp BP Pulse Ox 98.4 F 82 16 124/74 100 06/24/18 23:32 06/24/18 23:32 06/24/18 23:32 06/24/18 23:32 06/24/18 23:32 - Laboratory Result Diagrams: 06/24/18 20:27 06/24/18 20:27 Laboratory results interpreted by me: 06/24/18 06/24/18 06/24/18 20:27 20:27 20:27 WBC 10.9 H RDW 15.3 H Direct Bilirubin 0.5 H AST 9 L Beta HCG, Quant 44804.00 H Urine Urobilinogen 4.0 H Ur Leukocyte Esterase MODERATE H - Diagnostic Test Radiology reviewed: Reports reviewed Discharge - Discharge Clinical Impression: related abdominal pain of lower quadrant, antepartum, First trimester Urinary tract infection Qualifiers: Urinary tract infection type: acute cystitis Hematuria presence: without hematuria Qualified Code(s): N30.00 - Acute cystitis without hematuria Condition: Good Disposition: HOME, SELF-CARE Additional Instructions: You were seen for abdominal pain during . Your ultrasound today shows a viable, intrauterine at just over 6 weeks of gestation. Your labs do show a urinary tract infection. You are being placed on Keflex for the next 5 days for treatment. The exact cause your pain is uncertain but is likely related to your developing baby. 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 Return to the emergency department immediately if you have worsening of your pain, have persistent vomiting, develop a fever of greater than 100.4F, begin to have vaginal bleeding, or any other symptoms that are worrisome to you. Prescriptions: Cephalexin Monohydrate [Keflex 500 mg Capsule] 500 mg PO Q6H 5 Days capsule
--- NOTE | 2018-06-24 22:57 | RADIOLOGY REPORT (SQ) ---
Obstetric ultrasound HISTORY: Right lower quadrant pain. FINDINGS: Single viable IUP is noted with estimated gestational age of six weeks and three days. Yolk sac is noted. heart motion is noted. No free fluid in the cul-de-sac. Maternal ovaries are within normal limits for size and appearance. No abnormal adnexal masses. IMPRESSION: Single viable IUP of six weeks and three days.
[2018-06-24] MEDS ORDERED: CEPHALEXIN 500 MG CAPSULE PO ONE (23:33)
[2018-06-24 23:55] VITALS: BP 124/74
== END 2018-06-24 23:50 | disposition home or self-care (01) ==
LOC: ER 19:17
DX: O23.11 Infections of bladder in pregnancy, first trimester (principal); O26.891 Other specified pregnancy related conditions, first trimester; R10.2 Pelvic and perineal pain; O99.331 Smoking (tobacco) complicating pregnancy, first trimester; Z3A.01 Less than 8 weeks gestation of pregnancy; Z88.5 Allergy status to narcotic agent
CPT/HCPCS: 36415; 76817; 80053; 81001; 84702; 85025; 86900; 86901; 87086; 99284

== ENCOUNTER 2019-02-09 12:05 | Outpatient (CLI) | payer MEDICAID ==
--- NOTE | 2019-02-09 14:30 | Non Stress Test Report ---
Non Stress Test Datetime Report Generated by CPN: 02/09/2019 14:30 DEMOGRAPHIC EGA NST: 40.0 INDICATION Indication for Study: Ordered by Provider VITAL SIGNS Temperature - NST: 98.3 Pulse - NST: 109 RESP - NST: 17 NBPSYS NST: 137 NBPDIA NST: 67 URINE RESULTS Urine Glucose - NST: Positive MONITORING Monitor Explained: Monitor Explained; Test Explained; Patient Verbalized Understanding Time on Monitor: 02/09/2019 12:46 Time off Monitor: 02/09/2019 13:12 NST Duration: 26 NST INTERVENTIONS NST Interventions: PO Hydration Physician Notified NST: A. Mcclain, CNM BABY A: [id number] BABY A Movement : Present Contraction Frequency : none FHR Baseline : 140 Accelerations : 15X15 Decelerations : None Variability : Moderate 6-25bpm NST Review: Meets Criteria for Reactive NST NST Review and Verified By : Alessia Camp RNC NST Results: Reactive NST COMMENTS NST Comments: CNM on unit reviewing strip NST REPORT Report Trigger: Send Report
== END 2019-02-09 13:20 | disposition home or self-care (01) ==
LOC: LC 12:05
PROVIDERS: ATTEND Obstetrics & Gynecology Gynecology
PROC: 4A1HXCZ Monitoring of Products of Conception, Cardiac Rate, External Approach (ICD-10-PCS; principal; 2019-02-09)
DX: O48.0 Post-term pregnancy (principal); Z3A.40 40 weeks gestation of pregnancy
CPT/HCPCS: 59025

== ENCOUNTER 2019-02-14 11:27 | Outpatient (CLI) | payer MEDICAID ==
--- NOTE | 2019-02-14 12:30 | Non Stress Test Report ---
Non Stress Test Datetime Report Generated by CPN: 02/14/2019 12:29 DEMOGRAPHIC EGA NST: 40.5 INDICATION Indication for Study: Decreased Movement MONITORING Monitor Explained: Monitor Explained; Test Explained; Patient Verbalized Understanding Time on Monitor: 02/14/2019 11:39 Time off Monitor: 02/14/2019 12:21 NST Duration: 42 NST INTERVENTIONS NST Interventions: PO Hydration; Reposition Patient BABY A: [id number] BABY A Movement : Present Contraction Frequency : 0 FHR Baseline : 140 Accelerations : 15X15 Decelerations : None Variability : Moderate 6-25bpm NST Review: Meets Criteria for Reactive NST NST Review and Verified By : ANGELES Kenney NST Results: Reactive NST REPORT Report Trigger: Send Report
== END 2019-02-14 12:31 | disposition home or self-care (01) ==
LOC: LC 11:27
PROVIDERS: ATTEND Obstetrics & Gynecology
PROC: 4A1HXCZ Monitoring of Products of Conception, Cardiac Rate, External Approach (ICD-10-PCS; principal; 2019-02-14)
DX: O36.8130 Decreased fetal movements, third trimester, not applicable or unspecified (principal); Z3A.40 40 weeks gestation of pregnancy
CPT/HCPCS: 59025

== ENCOUNTER 2019-02-16 07:00 | Inpatient (IN) | payer MEDICAID ==
[2019-02-16 07:45] LABS: ABSOLUTE EOSINOPHILS # (AUTO) 0.1 10^3/uL (0.0-0.6); ABSOLUTE LYMPHOCYTES (AUTO) 2.9 10^3/uL (0.5-4.7); ABSOLUTE MONOCYTES (AUTO) 0.8 10^3/uL (0.1-1.4); ABSOLUTE NEUT (AUTO) 6.3 10^3/uL (1.7-8.2); BASOPHILS % (AUTO) 0.4 % (0-2); EOSINOPHILS % (AUTO) 0.9 % (0-6); HEMATOCRIT 32.5 % (36.0-47.0); HEMOGLOBIN 10.9 g/dL (12.0-15.5); LYMPHOCYTES % (AUTO) 28.8 % (13-45); MEAN CORPUSCULAR HEMOGLOBIN 25.9 pg (27.0-33.4); MEAN CORPUSCULAR HGB CONC 33.6 g/dL (32.0-36.0); MEAN CORPUSCULAR VOLUME 77 fl (80-97); MONOCYTES % (AUTO) 7.9 % (3-13); PLATELET COUNT 255 10^3/uL (150-450); RED CELL DISTRIBUTION WIDTH 14.1 % (11.5-14.0); TOTAL CELLS COUNTED % (AUTO) 100 %; WHITE BLOOD COUNT 10.2 10^3/uL (4.0-10.5)
[2019-02-16 07:51] LABS: APPEARANCE,URINE CLOUDY; BILIRUBIN,URINE NEGATIVE (NEGATIVE); COLOR,URINE YELLOW; GLUCOSE, URINE NEGATIVE (NEGATIVE); KETONES,URINE NEGATIVE (NEGATIVE); LEUKOCYTE ESTERASE,URINE MODERATE (NEGATIVE); NITRITE,URINE NEGATIVE (NEGATIVE); PROTEIN,URINE NEGATIVE (NEGATIVE); URINE SPECIFIC GRAVITY 1.016; UROBILINOGEN,URINE NEGATIVE mg/dL (<2.0)
[2019-02-16 08:15] LABS: URINE AMPHETAMINES SCREEN NEGATIVE; URINE BARBITURATES SCREEN NEGATIVE; URINE BENZODIAZEPINES SCREEN NEGATIVE; URINE COCAINE SCREEN NEGATIVE; URINE MARIJUANA (THC) SCREEN NEGATIVE; URINE METHADONE SCREEN NEGATIVE; URINE PHENCYCLIDINE SCREEN NEGATIVE
[2019-02-16] MEDS ORDERED: RINGERS SOLUTION,LACTATED 300 ML IV ONE (08:15)
[2019-02-16] MEDS ORDERED: OXYTOCIN/NORMAL SALINE 1,000 ML IV PRN (08:15)
[2019-02-16] MEDS ORDERED: RINGERS SOLUTION,LACTATED 1,000 ML IV PRN (08:15)
[2019-02-16] MEDS ORDERED: DINOPROSTONE 10 MG VAGINAL INSERT.SR PV PRN (08:15)
[2019-02-16] MEDS ORDERED: PENICILLIN G POTASSIUM 5,000,000 UNIT in DEXTROSE 5%-WATER 100 ML IV ONE (08:20)
[2019-02-16] MEDS ORDERED: PENICILLIN G-K 5 MILLION UNIT VIAL ONE ×3 (08:25→16:31)
[2019-02-16] MEDS ORDERED: MISOPROSTOL 0.2 MG TABLET ONE (08:25)
[2019-02-16] MEDS ORDERED: LIDOCAINE 1% INJ-PF (10 MG/ML) 30 ML SDV ONE (08:25)
[2019-02-16] MEDS ORDERED: OXYTOCIN/NORMAL SALINE 20 UNIT/1,000 ML RTUINJ ONE (08:25)
[2019-02-16] MEDS ORDERED: OXYTOCIN/NORMAL SALINE 20 UNIT/1,000 ML RTUINJ IV PRN ×2 (08:59→17:46)
[2019-02-16] MEDS: PENICILLIN G POTASSIUM 2,500,000 UNIT in DEXTROSE 5%-WATER 50 ML IV SCH ×2 (13:07→16:45)
[2019-02-16] MEDS ORDERED: PHENYLEPHRINE HCL INJ/PF 10 MG/1 ML SDV ONE (13:33)
[2019-02-16] MEDS ORDERED: FENTANYL CITRATE INJ/PF 100 MCG/2 ML AMPUL ONE (13:33)
[2019-02-16] MEDS ORDERED: BUPIVACAINE HCL 0.25 % INJ/PF (2.5 MG/1 ML) 30 ML VIAL ONE (13:34)
[2019-02-16] MEDS ORDERED: FENTANYL/BUPIVACAINE/NS/PF 300 MCG/150 ML RTUINJ EPI ONE (13:34)
[2019-02-16] MEDS ORDERED: EPHEDRINE SULFATE INJ 50 MG/1 ML AMPULE ONE (13:34)
--- NOTE | 2019-02-16 14:47 | Admission Physical ---
Datetime Report Generated by CPN: 02/16/2019 14:47 CURRENT ADMISSION Chief Complaint: Scheduled Induction of Labor Indication for Induction: Post Dates Admit Impression : Term, Intrauterine ; Induction of Labor Admit Plan: Admit to Unit; Initiate Labor Induction Protocol ALLERGIES Medication Allergies: Yes Medication Allergies: morphine (02/09/2019); metronidazole/Facial edema an (02/09/2019) Latex: Unknown OBSTETRICAL HISTORY EDC: 02/09/2019 00:00 : 4 Para: 2 Term: 2 : 0 SAB: 1 IAB: 0 Ectopic: 0 Livin Cesareans: 0 VBACs: 0 Multiple Births: 0 Gestational Diabetes: No Rh Sensitization: No Incompetent Cervix: No LITZY: No Infertility: No ART Treatment: No Uterine Anomaly: No IUGR: No Hx Previous C/S: No Macrosomia: No Hx Loss/Stillborn: No PIH: No Hx : No Placenta Previa/Abruption: No Depression/PP Depression: No PTL/PROM: No Post Hemorrhage: No Current Procedures: Ultrasound SEE RECORDS Alcohol: No Marijuana : No Cocaine: No Other Illicit Drugs: No Cigarettes: Current Everyday Smoker. 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 Heart Disease: No Hosp/Surgery: No Autoimmune Disorder: No Anesthetic Complications: No Kidney Disease: No Abnormal Pap Smear: No Neuro/Epilepsy: No Psychiatric Disorders: No Other Medical Diseases: No Hepatitis/Liver Disease: No Significant Family History: No Varicosities/Phlebitis: No Trauma/Violence : No Thyroid Dysfunction: No INFECTIOUS HISTORY Gonorrhea: No Genital Herpes: No Chlamydia: No Tuberculosis: No Syphilis: No Hepatitis: No HIV/AIDS Exposure: No Rash or Viral Illness: No HPV: No PHYSICAL EXAM General: Normal HEENT: Normal Neurologic: Normal Thyroid: Deferred Heart: Normal Lungs: Normal Breast: Deferred Back: Normal Abdomen: Normal Genitourinary Exam: Deferred Extremities: Normal DTRs: Normal Pelvic Type: Adequate Vital Signs: Reviewed MEMBRANES Membranes: Intact FETUS A EGA: 41.0 Monitoring: External US FHR- Baseline: 140 FHR Category: Category I Admit Comment: IOL for postdates Treated for trichomonas in 01'19 Positive for GBS-will treat in labor Antepartum records in chart Anticipate -Proven for 7lbs 8oz PLANS FOR LABOR AND DELIVERY Labor and Delivery: None Pain Management: Epidural Feeding Preference: Breast Circumcision: N/A INFORMED CONSENT Assignment: Rodney Guaman MD Signature: with User ID: Avril : with User ID: [email or web address] : I personally evaluated and examined the patient in conjunction with the MLP and agree with the assessment, treatment plan and disposition.
[2019-02-16] MEDS ORDERED: PROMETHAZINE HCL 25 MG SUPP.RECT PR PRN (17:46)
[2019-02-16] MEDS ORDERED: NA PHOS,M-B/NA PHOS,DI-BA (ADULT) 133 ML ENEMA PR PRN (17:46)
[2019-02-16] MEDS ORDERED: ZOLPIDEM TARTRATE 5 MG TABLET PO PRN (17:46)
[2019-02-16] MEDS ORDERED: DIPHENHYDRAMINE HCL 25 MG CAPSULE PO PRN (17:46)
[2019-02-16] MEDS ORDERED: PROMETHAZINE HCL INJ 25 MG/1 ML VIAL IV PRN (17:46)
[2019-02-16] MEDS ORDERED: DIPH/PERTUSS(ACELL)/TETANUS VAC/PF 0.5 ML SYR (>=10YO) IM PRN (17:46)
[2019-02-16] MEDS ORDERED: MEASLES,MUMPS&RUBELLA VACC/PF 0.5 ML VIAL SUBCUT PRN (17:46)
[2019-02-16] MEDS ORDERED: GLYCERIN/WITCH HAZEL LEAF 1 EACH MED..WIPE TP PRN (17:46)
[2019-02-16] MEDS ORDERED: ACETAMINOPHEN WITH CODEINE #3 TABLET PO PRN ×2 (17:46)
[2019-02-16] MEDS ORDERED: ACETAMINOPHEN 650 MG SUPP.RECT PR PRN (17:46)
[2019-02-16] MEDS ORDERED: MAGNESIUM HYDROXIDE SUSP 30 ML UDCUP PO PRN (17:46)
[2019-02-16] MEDS ORDERED: BENZOCAINE/MENTHOL AEROSOL SPRAY 56 ML TOP PRN (17:46)
[2019-02-16] MEDS ORDERED: PSEUDOEPHEDRINE HCL 30 MG TABLET PO PRN (17:46)
[2019-02-16] MEDS ORDERED: PROMETHAZINE HCL 25 MG TABLET PO PRN (17:46)
[2019-02-16] MEDS ORDERED: DIBUCAINE 1% OINTMENT 56 GM TP PRN (17:46)
--- NOTE | 2019-02-16 17:51 | Delivery Summary ---
Del Sum A-C Datetime Report Generated by CPN: 02/16/2019 17:51 DELIVERY PERSONNEL DELIVERY PERSONNEL: [id number] Delivery Doctor:: Ángela Manzanares CNM Nurse Underwriting Support Specialist Certified:: Ángela Manzanares CNM Anesthesiologist:: Nisih Philippe MD Labor and Delivery Nurse:: Elissa Caceres RN Nursery Nurse:: Nella Garcia RN Industrial Insulator/UTILITY ENGINEER: Andreea Hollingsworth CST Industrial Insulator/UTILITY ENGINEER: Divya Robbins, ST MATERNAL INFORMATION Delivery Anesthesia: Epidural Medications After Delivery: Pitocin Drip 20 Units/1000ml NSS Estimated Blood Loss (ml): 100 Maternal Complications: None Provider Comments: viable female in vertex OA to TIFF at 1705 under epidural anesthesia. Nuchal cord x 1-reduced. Terminal meconium. Spontaneous respirations and cry. 3-vessel cord. Apgars 9-9. Cord clamped x 2, after 2 in delay, then cut by fob. Placenta, membranes and cord expelled at 1711, appears intact. Perineum inspected, intact. FF @ U-2. Patient tolerated procedure well. LABOR SUMMARY EDC: 02/09/2019 00:00 No. Babies in Womb: 1 Labor Anesthesia: Epidural LABOR INFORMATION Reason for Induction: Post Dates Onset of Labor: 02/16/2019 09:15 Complete Dilatation: 02/16/2019 16:58 Oxytocin: Induction Group B Beta Strep: Positive Antibiotics # of Doses: 2 Antibiotics Time of Last Dose: 1300 Name of Antibiotic Given: [place] Steroids Given: None MEMBRANES Membranes Rupture Method: Spontaneous Rupture of Membranes: 02/16/2019 17:04 Length of Rupture (hr): 0.02 Amniotic Fluid Color: Clear Amniotic Fluid Amount: Small Amniotic Fluid Odor: Normal STAGES OF LABOR Stage 1 hr: 7 Stage 1 min: 43 Stage 2 hr: 0 Stage 2 min: 7 Stage 3 hr: 0 Stage 3 min: 2 Total Time in Labor hr: 7 Total Time in Labor min: 52 VAGINAL DELIVERY Episiotomy: None Laceration #1: None Laceration Extension #1: N/A Laceration Repair: Not Applicable Sponge Count Correct: N/A Sharps Count Correct: Yes CSECTION DELIVERY CSection Incision: N/A BABY A INFORMATION Infant Delivery Date/Time: 02/16/2019 17:05 Method of Delivery: Vaginal Born in Route : No : N/A Forceps: N/A Vacuum Extraction: N/A Shoulder Dystocia : No PRESENTATION/POSITION BABY A Presentation: Cephalic Cephalic Presentation: Vertex Vertex Position: Right Occipital Anterior Breech Presentation: N/A PLACENTA INFORMATION BABY A Placenta Delivery Time : 02/16/2019 17:07 Placenta Method of Delivery: Spontaneous Placenta Status: Delivered SCORES BABY A Heart Rate 1 min: >100 bpm Resp Effort 1 min: Good Cry Reflex Irritability 1 min: Cough or Sneeze or Pulls Away Muscle Tone 1 min: Active Motion Color 1 min: Body Diller, Extremities Blue Resuscitation Effort 1 min: Tactile Stimulation SCORE 1 MIN: 9 Heart Rate 5 min: >100 bpm Resp Effort 5 min: Good Cry Reflex Irritability 5 min: Cough or Sneeze or Pulls Away Muscle Tone 5 min: Active Motion Color 5 min: Body Diller, Extremities Blue Resuscitation Effort 5 min: Tactile Stimulation SCORE 5 MIN: 9 INFANT INFORMATION BABY A Gestational Age at Delivery: 41.0 Gestational Status: Late Term- 41- 41.6 Weeks Infant Outcome : Liveborn Infant Condition : Stable Sex: Female IDENTIFICATION BABY A Infant Verification Date/Time: 02/16/2019 17:46 ID Band Number: [id number] Mother's Name Verified: Yes Infant RN Verifying : Elissa Caceres RN Additional Verifying Personnel: Keesha Aguilar RN CORD INFORMATION BABY A No. Cord Vessels: 3 Nuchal Cord : Around Neck x1, Loose Cord Blood Taken: Yes-For Eval (Mom's Blood Type - or O+) ASSESSMENT BABY A Complications: None Physical Findings at Delivery: Within Normal Limits Infant Respirations: Appears Normal Skin to Skin: Yes Infant Care By: Adrian Garcia RN Transferred To: Remains with Mother SIGNATURES Assignment: Rodney Guaman MD Signature: with User ID: [email or web address] : with User ID: [email or web address] : I personally evaluated and examined the patient in conjunction with the MLP and agree with the assessment, treatment plan and disposition.
[2019-02-16] MEDS ORDERED: IBUPROFEN 800 MG TABLET ONE (19:21)
[2019-02-16] MEDS: IBUPROFEN 800 MG TABLET PO SCH (23:38)
[2019-02-16] MEDS: FAMOTIDINE 20 MG TABLET PO SCH (23:38)
[2019-02-17] MEDS: IBUPROFEN 800 MG TABLET PO SCH ×3 (05:07→21:42)
[2019-02-17 07:30] LABS: HEMATOCRIT 28.8 % (36.0-47.0); HEMOGLOBIN 9.6 g/dL (12.0-15.5); MEAN CORPUSCULAR HEMOGLOBIN 25.9 pg (27.0-33.4); MEAN CORPUSCULAR HGB CONC 33.2 g/dL (32.0-36.0); MEAN CORPUSCULAR VOLUME 78 fl (80-97); PLATELET COUNT 214 10^3/uL (150-450); RED BLOOD COUNT 3.69 10^6/uL (3.72-5.28); WHITE BLOOD COUNT 9.8 10^3/uL (4.0-10.5)
[2019-02-17] MEDS: SENNOSIDES/DOCUSATE 8.6-50 MG 1 EACH TABLET PO SCH (10:00)
[2019-02-17] MEDS: FAMOTIDINE 20 MG TABLET PO SCH ×2 (10:00→21:42)
[2019-02-17] MEDS: PRENATAL VITAMIN W DHA CAPSULE PO SCH (10:01)
[2019-02-17] MEDS: DOCUSATE SODIUM 100 MG CAPSULE PO SCH ×2 (10:01→17:55)
[2019-02-17] MEDS: FERROUS SULFATE 325 MG TABLET PO SCH ×2 (10:01→17:55)
--- NOTE | 2019-02-17 12:42 | PDOC PROGRESS REPORT ---
Subjective-OB Progress Note for:: 02/17/19 Subjective: Doing well, no c/o, voiding, ambulating, Physical Exam (OB) Vital Signs: Temp Pulse Resp BP Pulse Ox 97.7 F 73 16 123/73 100 02/17/19 07:56 02/17/19 07:56 02/17/19 07:56 02/17/19 07:56 02/17/19 07:56 Intake & Output 02/16/19 02/17/19 02/18/19 06:59 06:59 06:59 Intake Total 1000 Balance 1000 Weight 125.8 kg - PIH/Pre-Eclampsia Headache: Absent Epigastric Pain: No Visual Changes: No - Lochia Lochia Amount: Small 10-25 ml Lochia Color: Rubra/Red - Abdomen Description: Soft, Round Hernia Present: No Fundal Description: Firm, Midline Objective-Diagnostic Laboratory: 02/17/19 06:50 02/17/19 06:50 WBC 9.8 RBC 3.69 L Hgb 9.6 L Hct 28.8 L MCV 78 L MCH 25.9 L MCHC 33.2 RDW 14.0 Plt Count 214 Assessment and Plan(PN) - Assessment and Plan (1) Delivery normal Is this a current diagnosis for this admission?: Yes (2) GBS (group B Streptococcus carrier), +RV culture, currently Is this a current diagnosis for this admission?: Yes (3) Anemia Qualifiers: Anemia type: iron deficiency Is this a current diagnosis for this admission?: Yes - Time Spent with Patient Time with patient: Less than 15 minutes Medications reviewed and adjusted accordingly: Yes - Disposition Anticipated Discharge: Home Within: within 24 hours
--- NOTE | 2019-02-17 12:45 | PDOC DISCHARGE SUMMARY ---
Final Diagnosis Discharge Date: 02/18/19 - Final Diagnosis (1) Delivery normal Is this a current diagnosis for this admission?: Yes (2) GBS (group B Streptococcus carrier), +RV culture, currently Is this a current diagnosis for this admission?: Yes (3) Anemia Is this a current diagnosis for this admission?: Yes Discharge Data - Discharge Medication Home Medications: Vit/Dha [ Multi + Dha Capsule] 1 cap PO DAILY 02/09/19 Gestational Age: 41 Reason(s) for Admission: Induction of Labor, Group B Strep Positive Procedures: NST, Ultrasound Intrapartum Procedure(s): Spontaneous Vaginal Delivery - Data Baby 1 Female at 1 minute: 9 at 5 minutes: 9 Home with Mother: Yes Complications: No - Diagnosis Test Laboratory: Temp Pulse Resp BP Pulse Ox 97.7 F 73 16 123/73 100 02/17/19 07:56 02/17/19 07:56 02/17/19 07:56 02/17/19 07:56 02/17/19 07:56 02/16/19 02/16/19 02/17/19 07:15 07:35 06:50 RBC 4.20 3.69 L Hgb 10.9 L 9.6 L Hct 32.5 L 28.8 L Urine Opiates Screen NEGATIVE - Discharge information/Instructions Discharge Activity: Activity As Tolerated, No Lifting Over 10 Pounds, No Lifting/Push/Pulling, Pelvic Rest Discharge Diet: As Tolerated, Regular Disposition: HOME, SELF-CARE Follow up with: [facility] in: 4, Weeks
[2019-02-18] MEDS: IBUPROFEN 800 MG TABLET PO SCH (05:14)
[2019-02-18] MEDS: FAMOTIDINE 20 MG TABLET PO SCH (09:26)
[2019-02-18] MEDS: PRENATAL VITAMIN W DHA CAPSULE PO SCH (09:26)
[2019-02-18] MEDS: SENNOSIDES/DOCUSATE 8.6-50 MG 1 EACH TABLET PO SCH (09:26)
[2019-02-18] MEDS: DOCUSATE SODIUM 100 MG CAPSULE PO SCH ×2 (09:27→11:13)
[2019-02-18] MEDS: FERROUS SULFATE 325 MG TABLET PO SCH ×2 (09:27→11:13)
--- NOTE | 2019-02-18 09:36 | PDOC PROGRESS REPORT ---
Subjective-OB Progress Note for:: 02/18/19 Subjective: Doing well, ready to go home, Physical Exam (OB) Vital Signs: Temp Pulse Resp BP Pulse Ox 98.3 F 72 18 144/80 H 100 02/18/19 08:06 02/18/19 08:06 02/18/19 08:06 02/18/19 08:06 02/18/19 08:06 Intake & Output 02/17/19 02/18/19 02/19/19 06:59 06:59 06:59 Intake Total 1000 700 Balance 1000 700 Weight 125.8 kg - PIH/Pre-Eclampsia DTR's: 2 + Clonus: Negative Headache: Absent Epigastric Pain: No Visual Changes: No - Lochia Lochia Amount: Small 10-25 ml Lochia Color: Rubra/Red - Abdomen Description: Soft Hernia Present: No Fundal Description: Firm, Midline Fundal Height: u/u - u/2 Objective-Diagnostic Laboratory: 02/17/19 06:50 Assessment and Plan(PN) - Assessment and Plan (1) Delivery normal Is this a current diagnosis for this admission?: Yes (2) GBS (group B Streptococcus carrier), +RV culture, currently Is this a current diagnosis for this admission?: Yes (3) Anemia Qualifiers: Anemia type: iron deficiency Is this a current diagnosis for this admission?: Yes - Time Spent with Patient Time with patient: Less than 15 minutes Medications reviewed and adjusted accordingly: Yes - Disposition Anticipated Discharge: Home Within: within 24 hours
[2019-02-18 10:51] VITALS: BP 132/66
== END 2019-02-18 13:20 | disposition home or self-care (01) | DRG 807 ==
LOC: LR 07:00 → 2S 20:15
PROVIDERS: ADMIT Obstetrics & Gynecology Gynecology; ATTEND Obstetrics & Gynecology Gynecology
PROC: 10E0XZZ Delivery of Products of Conception, External Approach (ICD-10-PCS; principal; 2019-02-16)
PROC: 3E0234Z Introduction of Serum, Toxoid and Vaccine into Muscle, Percutaneous Approach (ICD-10-PCS; 2019-02-18)
DX: O48.0 Post-term pregnancy (principal); Z37.0 Single live birth; O99.824 Streptococcus B carrier state complicating childbirth; O99.334 Smoking (tobacco) complicating childbirth; F17.210 Nicotine dependence, cigarettes, uncomplicated; O69.81X0 Labor and delivery complicated by cord around neck, without compression, not applicable or unspecified; O77.0 Labor and delivery complicated by meconium in amniotic fluid; O99.02 Anemia complicating childbirth; D50.9 Iron deficiency anemia, unspecified; Z3A.41 41 weeks gestation of pregnancy; Z23 Encounter for immunization
CPT/HCPCS: 36415; 80307; 81005; 85025; 85027; 86592; 86850; 86900; 86901; 88307; 90715; J2370; J2540; J2590; J3010; J3490

== ENCOUNTER 2020-01-17 10:40 | Emergency (ER) | payer SELFPAY ==
[2020-01-17] MEDS ORDERED: KETOROLAC TROMETHAMINE 60 MG/2 ML SDV IM ONE (11:42)
[2020-01-17 12:13] LABS: ABSOLUTE BASOPHILS # (AUTO) 0.1 10^3/uL (0.0-0.2); ABSOLUTE LYMPHOCYTES (AUTO) 1.9 10^3/uL (0.5-4.7); ABSOLUTE MONOCYTES (AUTO) 1.1 10^3/uL (0.1-1.4); ABSOLUTE NEUT (AUTO) 3.7 10^3/uL (1.7-8.2); BASOPHILS % (AUTO) 0.8 % (0-2); EOSINOPHILS % (AUTO) 0.6 % (0-6); HEMATOCRIT 39.4 % (36.0-47.0); HEMOGLOBIN 13.4 g/dL (12.0-15.5); LYMPHOCYTES % (AUTO) 28.6 % (13-45); MEAN CORPUSCULAR HEMOGLOBIN 26.3 pg (27.0-33.4); MEAN CORPUSCULAR HGB CONC 34.1 g/dL (32.0-36.0); MEAN CORPUSCULAR VOLUME 77 fl (80-97); MONOCYTES % (AUTO) 15.6 % (3-13); PLATELET COUNT 220 10^3/uL (150-450); RED BLOOD COUNT 5.09 10^6/uL (3.72-5.28); RED CELL DISTRIBUTION WIDTH 15.1 % (11.5-14.0); SEGMENTED NEUTROPHILS % (AUTO) 54.4 % (42-78); TOTAL CELLS COUNTED % (AUTO) 100 %; WHITE BLOOD COUNT 6.7 10^3/uL (4.0-10.5)
--- NOTE | 2020-01-17 12:31 | ER Document Report ---
ED Breast Problem - General Chief Complaint: Breast Problem Stated Complaint: BREAST PAIN Time Seen by Provider: 01/17/20 11:28 Mode of Arrival: Ambulatory Information source: Patient TRAVEL OUTSIDE OF THE [place] IN LAST 30 DAYS: No - HPI Notes: Patient presents complaining of right breast pain. She states that her breast began to hurt yesterday. The pain is constant and severe. It is throbbing. Is worse of the breast is moved and better if left alone. She is also had some low-grade fever and chills. She denies any trauma to the breast. She is not currently breast-feeding. No previous breast infections. It does not radiate. - Related Data Allergies/Adverse Reactions: metronidazole [From Flagyl] Allergy (Verified 02/09/19 13:09) Facial edema and rash morphine Allergy (Verified 02/09/19 13:09) Past Medical History - General Information source: Patient - Social History Smoking Status: Current Every Day Smoker Frequency of alcohol use: None Drug Abuse: None Family History: Reviewed & Not Pertinent Patient has homicidal ideation: No Pulmonary Medical History: Denies: Hx Tuberculosis Renal/ Medical History: Denies: Hx End Stage Renal Disease, Hx Kidney Stones, Hx Peritoneal Dialysis Traumatic Medical History: Reports: Hx Fractures - FX JAW A CHILD Past Surgical History: Reports: Hx Tonsillectomy. Denies: Hx Appendectomy, Hx Bowel Surgery, Hx Section, Hx Cholecystectomy, Hx Coronary Artery Bypass Graft, Hx Gastric Bypass Surgery, Hx Herniorrhaphy, Hx Hysterectomy, Hx Mastectomy, Hx Pacemaker, Hx Tubal Ligation - Immunizations Immunizations up to date: Yes Hx Diphtheria, Pertussis, Tetanus Vaccination: Yes Review of Systems - Review of Systems Constitutional: Chills, Fever Cardiovascular: Chest pain. denies: Palpitations Respiratory: denies: Cough, Short of breath -: Yes All other systems reviewed and negative Physical Exam - Vital signs Vitals: Temp Pulse Resp BP Pulse Ox 99.8 F 116 H 20 144/97 H 98 01/17/20 10:43 01/17/20 10:43 01/17/20 10:43 01/17/20 10:43 01/17/20 10:43 Interpretation: Tachycardic - General General appearance: Appears well, Alert - HEENT Head: Normocephalic, Atraumatic Eyes: Normal Pupils: PERRL - Respiratory Respiratory status: No respiratory distress Chest status: Nontender Breath sounds: Normal Chest palpation: Normal Notes: Left breast is unremarkable. Right breast is swollen mildly erythematous and mildly indurated around the areola and nipple. It is very tender as well in this area. No discharge from the right nipple was appreciated. - Cardiovascular Rhythm: Tachycardia Heart sounds: Normal auscultation Murmur: No - Abdominal Inspection: Normal Distension: No distension Bowel sounds: Normal Tenderness: Nontender Organomegaly: No organomegaly - Back Back: Normal, Nontender - Extremities General upper extremity: Normal inspection, Nontender, Normal color, Normal ROM, Normal temperature General lower extremity: Normal inspection, Nontender, Normal color, Normal ROM, Normal temperature, Normal weight bearing. No: Allan's sign - Neurological Neuro grossly intact: Yes Cognition: Normal Orientation: AAOx4 Rea Coma Scale Eye Opening: Spontaneous Rea Coma Scale Verbal: Oriented Starr Coma Scale Motor: Obeys Commands Starr Coma Scale Total: 15 Speech: Normal Motor strength normal: LUE, RUE, LLE, RLE Sensory: Normal - Psychological Associated symptoms: Normal affect, Normal mood - Skin Skin Temperature: Warm Skin Moisture: Dry Skin Color: Normal Course - Re-evaluation Re-evalutation: 01/17/20 13:42 Patient presents with a right breast tenderness. At this time ultrasound is pending. If ultrasound shows abscess surgery be consulted. If there is no abscess patient be discharged home with antibiotics pain medicine and follow-up with her physician. I will be turning the care of this patient over to Dr. Gregory at 2 PM. - Vital Signs Vital signs: Temp Pulse Resp BP Pulse Ox 99.8 F 116 H 20 144/97 H 98 01/17/20 11:00 01/17/20 10:43 01/17/20 10:43 01/17/20 10:43 01/17/20 10:43 - Laboratory Result Diagrams: 01/17/20 12:00 01/17/20 12:00 Laboratory results interpreted by me: 01/17/20 12:00 MCV 77 L MCH 26.3 L RDW 15.1 H Lynn % (Auto) 15.6 H Discharge - Discharge Clinical Impression: Mastitis, left, acute Condition: Stable Disposition: HOME, SELF-CARE
[2020-01-17 12:35] LABS: ALBUMIN 3.7 g/dL (3.5-5.0); ALKALINE PHOSPHATASE 93 U/L (38-126); ANION GAP 7 (5-19); ASPARTATE AMINO TRANSFERASE 10 U/L (14-36); BILIRUBIN,TOTAL 0.2 mg/dL (0.2-1.3); BLOOD UREA NITROGEN 8 mg/dL (7-20); CALCIUM 8.7 mg/dL (8.4-10.2); CARBON DIOXIDE 25 mmol/L (22-30); CHLORIDE 103 mmol/L (98-107); GLUCOSE 83 mg/dL (75-110); POTASSIUM 3.8 mmol/L (3.6-5.0); TOTAL PROTEIN 6.6 g/dL (6.3-8.2)
--- NOTE | 2020-01-17 14:56 | RADIOLOGY REPORT (SQ) ---
EXAM DESCRIPTION: U/S BREAST UNILATERAL LIMITED IMAGES COMPLETED DATE/TIME: 01/17/2020 2:48 pm REASON FOR STUDY: right breast/nipple tender,red,swollen-?abscess COMPARISON: None TECHNIQUE: Static and Realtime grayscale interrogation of focal area(s) of concern in the right ronak st(s) acquired. Selected color doppler/spectral images saved to PACS. LIMITATIONS: None. FINDINGS: There is a fluid collection just posterior to the nipple measuring 3.0 x 2.5 cm. No inter nal flow on color Doppler. IMPRESSION: Abscess. BIRAD: 2 Benign findings.. RECOMMENDATION: RECOMMENDED FOLLOW-UP: Follow-up as clinically indicated. COMMENT: The [employer] ([employer]) has developed recommendations for screening MRI of the breasts in certain patient populations, to be used in conjunction with mammography. Breast MRI s urveillance may be appropriate for women with more than 20% lifetime risk of developing breast cancer as determined by genetic testing, significant family history of the disease, or history of mantle r adiation for Hodgkins Disease. [employer] Practice Guidelines 2008. TECHNICAL DOCUMENTATION: FINDING NUMBER: (1) ASSESSMENT: (1) JOB ID: [id number] 2010 [employer]- All Rights Reserved Reading location - IP/workstation name: [email or web address]
[2020-01-17] MEDS ORDERED: ONDANSETRON HCL INJ/PF 4 MG/2 ML SDV IV ONE (16:49)
[2020-01-17] MEDS ORDERED: FENTANYL CITRATE INJ/PF 100 MCG/2 ML AMPUL IV ONE (16:50)
[2020-01-17] MEDS ORDERED: LIDOCAINE 1.5%/EPINEPHRINE INJ-PF 30 ML SDV INJ ONE (17:42)
[2020-01-17] MEDS ORDERED: ACETAMINOPHEN 1,000 MG/100 ML RTUPB IV ONE (17:46)
[2020-01-17 20:16] VITALS: BP 138/82
[2020-01-17] MEDS ORDERED: HYDROCODONE/ACETAMINOPHEN 5-325 MG (6 TAB/ER DISP) PO PRN (20:17)
--- NOTE | 2020-01-18 06:59 | PDOC CONSULTATION ---
Consultation Consult Date: 01/18/20 Provider Consulted: SURGICAL SURGICALIST MD Consult reason:: Right breast abscess History of Present Illness History of Present Illness: PAO CANCINO is a 29 year old female seen in consultation at the request of the emergency department. Patient reports a 2-day history of swelling and pain beneath the nipple. She denies any history of previous symptomatology. She denies nipple piercings or other ornamentation. She does smoke cigarettes. Patient is not currently breast-feeding. She does report fevers and chills. She denies chest pain, shortness of breath, headache, nausea, vomiting, dizziness, blurry vision, cough, myalgias, melena, hematochezia, abdominal pain, hematemesis. Her pain is sharp and stabbing in nature. She reports it as 6 out of 10. Her pain does not radiate. Nothing makes it better. Palpation and movement make it worse. Past Medical History Pulmonary Medical History: Denies: Tuberculosis Renal/ Medical History: Denies: End Stage Renal Disease Past Surgical History Past Surgical History: Reports: Tonsillectomy Denies: Appendectomy, Section, Cholecystectomy, Coronary Artery Bypass Graft, Gastric Bypass Surgery, Herniorrhaphy, Hysterectomy, Mastectomy, Pacemaker, Tubal Ligation Social History Smoking Status: Current Every Day Smoker Hx Recreational Drug Use: No Hx Prescription Drug Abuse: No Family History Family History: Reviewed & Not Pertinent Parental Family History Reviewed: Yes Children Family History Reviewed: Yes Sibling(s) Family History Reviewed.: Yes Medication/Allergy Home Medications: Vit/Dha [ Multi + Dha Capsule] 1 cap PO DAILY 02/09/19 Oxycodone HCl/Acetaminophen [Percocet 5-325 mg Tablet] 2 tab PO Q6H PRN 5 Days #20 tablet 01/17/20 Sulfamethoxazole/Trimethoprim [Septra-Ds 800-160 mg Tablet] 2 tab PO BID 10 Days #40 tablet 01/17/20 Allergies/Adverse Reactions: metronidazole [From Flagyl] Allergy (Verified 01/17/20 18:23) Facial edema and rash morphine Adverse Reaction (Verified 01/17/20 18:23) Review of Systems Constitutional: PRESENT: chills, fever(s). ABSENT: anorexia, fatigue Eyes: ABSENT: visual disturbances Ears: ABSENT: hearing changes Nose, Mouth, and Throat: ABSENT: sore throat Cardiovascular: ABSENT: chest pain Respiratory: ABSENT: cough Gastrointestinal: ABSENT: abdominal pain, bloating Genitourinary: ABSENT: dysuria Musculoskeletal: ABSENT: back pain Integumentary: PRESENT: erythema, lesions, other - Right breast pain, erythema, and swelling. Neurological: ABSENT: confusion, convulsions, dizziness Psychiatric: ABSENT: anxiety, depression Endocrine: ABSENT: cold intolerance, heat intolerance Hematologic/Lymphatic: ABSENT: easy bleeding, easy bruising Physical Exam Vital Signs: Temp Pulse Resp BP Pulse Ox 99.4 F 101 H 20 138/82 H 98 01/17/20 20:00 01/17/20 20:00 01/17/20 20:00 01/17/20 20:00 01/17/20 20:00 Intake & Output 01/16/20 01/17/20 01/18/20 06:59 06:59 06:59 Intake Total 100 Balance 100 Weight 126.9 kg General appearance: PRESENT: obese Head exam: PRESENT: atraumatic, normocephalic Eye exam: PRESENT: EOMI, PERRLA. ABSENT: scleral icterus Mouth exam: PRESENT: moist, neck supple Teeth exam: ABSENT: poor dentation Neck exam: ABSENT: meningismus, tenderness, thyromegaly, tracheal deviation Respiratory exam: PRESENT: tachypnea, wheezes. ABSENT: chest wall tenderness, unlabored Cardiovascular exam: ABSENT: tachycardia Pulses: PRESENT: normal radial pulses Vascular exam: PRESENT: normal capillary refill Breast: PRESENT: Other - Right subareolar mass. Edema, induration, and erythema of the right nipple. Tenderness to palpation, right nipple. GI/Abdominal exam: PRESENT: soft. ABSENT: distended, tenderness Rectal exam: PRESENT: deferred Extremities exam: ABSENT: clubbing Musculoskeletal exam: ABSENT: deformity Neurological exam: PRESENT: alert, awake, oriented to person, oriented to place, oriented to time, oriented to situation, CN II-XII grossly intact Psychiatric exam: ABSENT: agitated, anxious, depressed Focused psych exam: ABSENT: delusional Skin exam: PRESENT: erythema - See breast exam. ABSENT: cyanosis, jaundice Results Laboratory Results: 01/17/20 12:00 01/17/20 12:00 01/17/20 01/17/20 12:00 12:00 WBC 6.7 RBC 5.09 Hgb 13.4 Hct 39.4 MCV 77 L MCH 26.3 L MCHC 34.1 RDW 15.1 H Plt Count 220 Seg Neutrophils % 54.4 Sodium 134.7 L Potassium 3.8 Chloride 103 Carbon Dioxide 25 Anion Gap 7 BUN 8 Creatinine 0.62 Est GFR ( Amer) > 60 Glucose 83 Calcium 8.7 Total Bilirubin 0.2 AST 10 L Alkaline Phosphatase 93 Total Protein 6.6 Albumin 3.7 Impressions: Breast Ultrasound 01/17/20 11:41 IMPRESSION: Abscess. Assessment & Plan - Diagnosis (1) Abscess of right breast Is this a current diagnosis for this admission?: Yes - Plan Summary Plan Summary: This is a 29-year-old female with a right breast abscess. The ER physician has consulted me for surgical management, as they are uncomfortable managing breast abscesses. I have discussed several options with the patient. She may attempt oral antibiotics alone, however this will likely be unsuccessful. Her second option involves percutaneous aspiration of the breast abscess. This is generally successful, however occasionally requires multiple aspirations. Her third option is the most definitive. She could undergo incision and drainage of her breast abscess with packing. After much discussion, the patient is chosen incision and drainage of her breast abscess. I plan to perform this in the emergency department today, at the bedside. The patient has agreed to this. Risks/benefits discussed, informed consent obtained, and all questions answered.
--- NOTE | 2020-01-18 07:03 | Operative Report ---
Nonrecallable Operative Report DATE OF SURGERY: 01/17/20 PREOPERATIVE DIAGNOSIS: Right breast abscess POSTOPERATIVE DIAGNOSIS: Same as above OPERATION: Incision and drainage of right breast abscess, subareolar position SURGEON: ALE REID ANESTHESIA: Local TISSUE REMOVED OR ALTERED: None COMPLICATIONS: None apparent ESTIMATED BLOOD LOSS: Minimal PROCEDURE: Drains/implants: 4 x 4 gauze. Procedure in detail: After informed consent was obtained, the patient was laid in the supine position in the emergency department. The area of the right breast was prepped and draped in a normal sterile fashion. 1% lidocaine with epinephrine was infiltrated into the skin. A curvilinear incision was created at the superior border of the areola. Dissection was carried beneath the areola, to the 3 cm breast abscess. The abscess was incised with an 11 blade scalpel, and a moderate amount of purulent material was expressed. The abscess cavity was cleaned, and then packed with a 4 x 4 gauze. A dressing was placed, and the procedure was concluded. All sponge, instrument, and needle counts were correct. The patient tolerated the procedure well. Condition: Stable.
== END 2020-01-17 20:00 | disposition home or self-care (01) ==
LOC: ER 10:40
DX: N61.1 Abscess of the breast and nipple (principal); N64.4 Mastodynia; R50.9 Fever, unspecified; F17.200 Nicotine dependence, unspecified, uncomplicated
CPT/HCPCS: 99284; 96372; 96374; 96375; 36415; 85025; 80053; 76642; 10060; J1885; J3010; J2405; J3490; J0131